=== PATIENT | male | born 1965 | race Two or more races ===

== ENCOUNTER 2025-06-13 14:13 | Inpatient (IN) | payer OTHER ==
[~2025-06-13] VITALS: Ht 218.4 cm; Wt 174.0 kg
[2025-06-13 15:05] VITALS: PULSE 104; RESP 20; O2SAT 96
[2025-06-13] MEDS: VANCOMYCIN 1GM/250ML KIT 250 ML IV ONE ×2 (15:25→21:22)
[2025-06-13] MEDS: FUROSEMIDE 100 MG/10ML VIAL IV ONE (15:25)
[2025-06-13] MEDS: HYDROcodone-ACET 10/325MG TAB PO ONE (15:28)
--- NOTE | 2025-06-13 15:28 | ECG ---
[facility] Test Date: 2025-06-13 Test Time: 14:21:50 Pat Name: GENESIS THOMAS Department: Room: 0286T Gender: M Excel Expert: JT : 1965 Requested By: EMERGENCY EMERGENCY Order Number: [id number] Reading MD: Brain Sol Measurements Intervals [place] Rate: 109 P: 60 CO: 192 QRS: 234 QRSD: 105 T: 60 QT: 345 QTc: 465 Interpretive Statements Sinus tachycardia Multiform ventricular premature complexes Left atrial enlargement Probable RVH w/ secondary repol abnormality Inferior infarct, old Lateral leads are also involved Electronically Signed On 06-20-2025 20:13:31 PDT by Brain Sol Please click the below link to view image of tracing.
[2025-06-13] MEDS: PIPERACILLIN-TAZOB 3.375GM 100 ML IV ONE (15:30)
[2025-06-13 15:52] LABS: Hematocrit 42.7 % (41.0-53.0); Hemoglobin 14.3 g/dL (13.5-17.5); Mean Corpuscular Hemoglobin 30.5 pg (28.0-32.0); Mean Corpuscular Volume 91.2 fL (80.0-100.0); Nucleated Red Blood Cells % 0.0 %
--- NOTE | 2025-06-13 15:54 | DVH ---
CHEST RADIOGRAPH Indication: sob Technique: Single frontal view of the chest was obtained Comparison: None FINDINGS: Lines and Tubes: None Lungs: No focal consolidation. Pleura: No effusion. No pneumothorax. Cardiomediastinal contours: Unremarkable Bones: No acute osseous abnormality. IMPRESSION: 1. No acute cardiopulmonary disease. 2. No pulmonary airspace disease 3. No pneumothorax
[2025-06-13 16:06] LABS: Alanine Aminotransferase 22 U/L (7-40); Albumin 3.4 g/dL (3.2-4.8); Alkaline Phosphatase 105 U/L (46-116); Anion Gap 8 (5-15); BUN/Creatinine Ratio 13.6 (10.0-20.0); Blood Urea Nitrogen 15 mg/dL (9-23); Calcium 9.8 mg/dL (8.7-10.4); Carbon Dioxide 26 mmol/L (20-31); Chloride 102 mmol/L (98-107); Potassium 4.1 mmol/L (3.5-5.1); Sodium 136 mmol/L (136-145); Total Protein 6.1 g/dL (5.7-8.2)
--- NOTE | 2025-06-13 16:06 | DVH ---
Left lower extremity venous duplex Clinical History: pain swelling Comparison: None Technique: Duplex Doppler evaluation of the deep venous system of the left lower extremity from the common femor al vein to the popliteal vein including color Doppler and spectral/pulsed waveform analysis was perfo rmed. Findings: The common femoral vein demonstrates appropriate compressibility and waveform variability. There is compressibility/patency of the great saphenous vein at the proximal thigh. The femoral vein demonstrates appropriate compressibility and waveform variability. The deep femoral vein demonstrates appropriate compressibility and waveform variability. The popliteal vein demonstrates appropriate compressibility and waveform variability. There is normal compressibility at the tibioperoneal trunk. Prominent left inguinal lymph node is seen measuring up to 2.5 cm Impression: 1. No left femoropopliteal venous thrombosis. 2. Prominent left inguinal lymph node measuring up to 2.5 cm.
[2025-06-13 16:10] LABS: Bilirubin, Total 1.7 mg/dL (0.2-1.0); Glucose 127 mg/dL (74-106)
--- NOTE | 2025-06-13 16:18 | ED.PDOC ---
SOB-HPI HPI Comments Mr. Longo, Jose You, is a 60-year-old male with past medical history of CHF, DM2, HTN, hyperlipidemia, poly-substance abuse, umbilical hernia, inguinal hernia, venous stasis, and lymphedema, The patient came to the ED via EMS due to 1 week of shortness of breath at rest, and while walking, associated with productive cough, yellowish sputum. On further questioning, the patient reports chronic limphedema with beto stasis and multiples skin ulcers in bilateral legs, he is been having wound care at home. The patient reports 1 week of worsen of left leg swelling, up to the knee and lower part of the left tight, that is tender to touch, 9/10, with erythema, warmth and ulcer in the lateral part of the leg that discharge yellowish fluid. Today, the patient reports worsened of shortness of breath, this prompted his visit to the ED. The patient denies fever, chills, nausea, vomit, diarrhea, chest pain, abdominal pain. On the ED BP: 143/81mmHg, HR: 109bpm, O2Sat 96% with oxygen by NC. The patient will be admitted for further assessment and management. Attestation note: Dr. Morton: I was the supervising attending for this ED encounter. Please see the resident's notes. I was available for questions and consultations. Differential diagnosis: Leg swelling Ddx include but not limited to DVT, ischemic limb, pitting edema, volume overload, CHF, cellulitis, hematoma, compartment syndrome, dependent edema, venous stasis. As far as the dyspnea, DDx include ACS, unstable angina, anxiety, PE, pneumothroax, neoplasm, cardiac ischemia, COPD, asthma, CHF, pleural effusion, tobacco abuse, pneumonia, hypoxia, hypercapnia, anemia., infection/sepsis., pulmonary edema. Asthma, Cardiac tamponade, infection. MDM: MDM: patient presented with the above HPI.-leg swelling and pain and dyspnea----workup was initiated. patient was found with the above mentioned diagnosis. the following medications were ordered: please refer to order lists of meds and tests obtained by myself Dr. Morton. Patient ED course and VS have been stabilized. Patient has been reassessed in the ED and remained in a stable condition. Pertinent incidental findings were discussed with the patient and/or family. Patient/family voices understanding and is agreeable with plan. Patient has been observed in the ED adequate length of time to insure improvement/stability. Escalation of care considered: Consideration of escalation to observation or admission Sepsis protocol was initiated. Antibiotics given. DVT workup was performed. CT with contrast of the affected extremity was performed to rule out any deep tissue infection. Given the patient's edematous extremity then history of CHF and shortness of breath, Lasix was ordered. Patient was ADMITTED to the medicine team for further evaluation and treatment of their presentation. All the reports of any imaging studies that were ordered by myself were reviewed by myself. Chief Complaint: Shortness of Breath Time Seen by MD: 14:46 Reviewed notes: Nurses Notes, Medications, Allergies Information Source: Patient Mode of Arrival: EMS Severity: Moderate Timing: Weeks Duration: Since onset Context: At Rest, With Light Exertion History of: CHF Modifying Factors: Exertion, Laying flat Associated Signs and Symptoms: Cough Past Medical History PAST MEDICAL HISTORY: CHF, DM, High Lipids, HTN, Thyroid Past Medical History (Other): Venous stasis Lymphadema. Thyroid tumor (does not know type) Surgical History (Other): left Hernia repair Family History Family History: Reviewed,noncontributory to illness Social History Smoker: Greater Than 1 Pack/Day Alcohol: Occasionally Drugs: Methamphetamine Lives In: Home Constitutional: denies: chills, diaphoresis, fatigue, fever, malaise, sweats, weakness, others EENTM: denies: blurred vision, double vision, ear bleeding, ear discharge, ear drainage, ear pain, ear ringing, eye pain, eye redness, hearing loss, mouth pain, mouth swelling, nasal discharge, nose bleeding, nose congestion, nose pain, photophobia, tearing, throat pain, throat swelling, voice changes, others Respiratory: reports: cough, SOB at rest, shortness of breath, SOB with excertion; denies: hemoptysis, orthopnea, stridor, wheezing, others Cardiovascular: denies: chest pain, dizzy spells, diaphoresis, Dyspnea on exertion, edema, irregular heart beat, left arm pain, lightheadedness, palpitations, PND, syncope, others Gastrointestinal: denies: abdomen distended, abdominal pain, blood streaked bowels, constipated, diarrhea, dysphagia, difficulty swallowing, hematemesis, melena, nausea, poor appetite, poor fluid intake, rectal bleeding, rectal pain, vomiting, others Genitourinary: denies: burning, dysuria, flank pain, frequency, hematuria, incontinence, penile discharge, penile sore, pain, testicle pain, testicle swelling, urgency, others Neurological: denies: dizziness, fainting, headache, left sided numbness, left sided weakness, numbness, paresthesia, pre-existing deficit, right sided numbness, right sided weakness, seizure, speech problems, tingling, tremors, weakness, others Musculoskeletal: reports: others (Left leg pain, lymphedema, multiples ulcers on left leg, wamth and erythematous. ) Integumetry: reports: change in color (in bilateral legs due to lymphedema. ); denies: change in hair/nails, dryness, laceration, lesions, lumps, rash, wounds, others Allergic/Immunocompromised: denies: Difficulty Healing, Frequent Infections, Hives, Itching, others Hematologic/Lymphatic: denies: anemia, blood clots, easy bleeding, easy bruising, swollen glands, others Endocrine: denies: excessive hunger, excessive sweating, excessive thirst, excessive urination, flushing, intolerance to cold, intolerance to heat, unexplained weight gain, unexplained weight loss, others Psychiatric: denies: anxiety, bipolar disorder, depression, hopeless, panic disorder, schizophrenia, sleepless, suicidal, others Physical Exam Exam Comments O2 by nasal canula. General Appearance: Moderate Distress HEENT: Normal ENT Inspection, Pharynx Normal, TMs Normal Neck: Full Range of Motion, Non-Tender, Normal, Normal Inspection Respiratory: Other Cardiovascular: No Edema, No JVD, No Murmur, No Gallop, Normal Peripheral Pulses, Regular Rate/Rhythm Breast Exam: Deferred Gastrointestinal: No Organomegaly, Non Tender, No Pulsatile Mass, Normal Bowel Sounds, Soft Genitalia: Deferred Pelvic: Deferred Rectal: Deferred Extremities: Decreased range of motion (Bilateral leg due to lymphedema,), Inflammation, Leg edema (Left leg: erythema up to lower tight, warmth, multiples ulcers with yellowish discharge, one big ulcer >5 cm on lateral leg with yellowish discharge and bad odor. Tender to light touch. Pedal and poplitial pulses hard to examinate due to edema. ) Musculoskeletal : Apperance: Normal Neurologic: Alert, fermentologist II-XII nml as Tested, No Motor Deficits, Normal Affect, Normal Mood, No Sensory Deficits Cerebellar Function: Normal Reflexes: Normal Skin: Dry, Normal Color, Warm Lymphatic: No Adenopathy EKG EKG : Pulse Rate (adult): 109 Comments Sinus tachycardia Multiform ventricular premature complexes Left atrial enlargement Probable RVH w/ secondary repol abnormality Inferior infarct, old Lateral leads are also involved Was a procedure done? Was a procedure done?: No Differential Dx Differential Diagnosis: CHF (exacerbation), COPD, Pneumonia, Pulmonary Embolism Comments #PE, #Pneumonia, #sepsis X-Ray, Labs, Meds, VS Vital Signs Date Time Temp Pulse Resp B/P (MAP) Pulse Ox O2 Delivery O2 Flow Rate FiO2 06/13/25 17:00 94 18 127/88 (101) 97 06/13/25 15:46 96 Nasal Cannula* 2 28 06/13/25 15:25 138/82 06/13/25 15:05 104 20 96 Nasal Cannula* 2 28 06/13/25 15:00 97.6 104 20 139/85 (103) 96 97.6 06/13/25 14:21 109 06/13/25 14:20 97.9 110 15 143/81 96 97.9 Lab Test 06/13/25 16:16 06/13/25 15:30 06/13/25 15:03 Range/Units Troponin I High Sensitivity 9 8 </=54 ng/L White Blood Count 18.4 H 4.4-10.8 10^3/uL Red Blood Count 4.69 4.5-5.90 10^6/uL Hemoglobin 14.3 13.5-17.5 g/dL Hematocrit 42.7 41.0-53.0 % Mean Corpuscular Volume 91.2 80.0-100.0 fL Mean Corpuscular Hemoglobin 30.5 28.0-32.0 pg Mean Corpuscular Hemoglobin Concent 33.5 32.0-36.0 g/dL Red Cell Distribution Width 15.6 H 11.8-14.3 % Platelet Count 210 140-450 10^3/uL Mean Platelet Volume 8.7 6.9-10.8 fL Neutrophils (%) (Auto) 84.2 H 37.0-80.0 % Lymphocytes (%) (Auto) 5.4 L 10.0-50.0 % Monocytes (%) (Auto) 10.0 0.0-12.0 % Eosinophils (%) (Auto) 0.1 0.0-7.0 % Basophils (%) (Auto) 0.3 0.0-2.0 % Neutrophils # (Auto) 15.5 H 1.6-8.6 10 ^3/uL Lymphocytes # (Auto) 1.0 0.4-5.4 10 ^3/uL Monocytes # (Auto) 1.8 H 0-1.3 10 ^3/uL Eosinophils # (Auto) 0 0-0.8 10 ^3/uL Basophils # (Auto) 0.1 0-0.2 10 ^3/uL Nucleated Red Blood Cells 0.0 % Erythrocyte Sedimentation Rate 58 H 0-20 mm/hr Sodium Level 136 136-145 mmol/L Potassium Level 4.1 3.5-5.1 mmol/L Chloride Level 102 98-107 mmol/L Carbon Dioxide Level 26 20-31 mmol/L Anion Gap 8 5-15 Blood Urea Nitrogen 15 9-23 mg/dL Creatinine 1.10 0.700-1.30 mg/dL Glomerular Filtration Rate Calc 77 >90 mL/min BUN/Creatinine Ratio 13.6 10.0-20.0 Serum Glucose 127 H 74-106 mg/dL Lactic Acid Level 1.6 0.4-2.0 mmol/L Calcium Level 9.8 8.7-10.4 mg/dL Total Bilirubin 1.7 H 0.2-1.0 mg/dL Aspartate Amino Transferase (AST) 26 13-40 U/L Alanine Aminotransferase (ALT) 22 7-40 U/L Alkaline Phosphatase 105 46-116 U/L C-Reactive Protein High Sensitivity > 20.00 H <1.0 mg/dL B-Type Natriuretic Peptide 46.19 0-100 pg/mL Total Protein 6.1 5.7-8.2 g/dL Albumin 3.4 3.2-4.8 g/dL Thyroid Stimulating Hormone (TSH) 0.51 L 0.55-4.78 uIU/mL Urine Color Yellow Yellow Urine Clarity Turbid H Clear Urine pH 7.0 5.0-9.0 Urine Specific [place] 1.014 1.001-1.035 Urine Protein 1+ H Negative Urine Ketones Negative Negative Urine Blood 2+ H Negative /uL Urine Nitrite 2+ H Negative Urine Bilirubin Negative Negative Urine Urobilinogen Normal Negative mg/dL Urine Leukocyte Esterase 1+ Negative /uL Urine RBC 5 0 - 3 /hpf Urine Microscopic WBC 12 H 0-3 /HPF Urine Squamous Epithelial Cells Few <5 /hpf Urine Bacteria Few H None Seen /hpf Urine Mucus Few None Seen Urine Glucose Trace Normal mg/dL Current Medications Medications (Trade) Dose Ordered Sig/Teresa Route Start Time Stop Time Status Last Admin Furosemide (Lasix Injection) 60 mg ONCE ONCE IV 06/13/25 15:15 06/13/25 15:16 DC 06/13/25 15:25 Vancomycin HCl 250 ml @ 250 mls/hr ONCE ONCE IV 06/13/25 15:15 06/13/25 16:14 DC 06/13/25 15:25 Piperacillin Sod/ Tazobactam Sod 100 ml @ 100 mls/hr ONCE ONCE IV 06/13/25 15:30 06/13/25 16:29 DC 06/13/25 15:30 Acetaminophen/ Hydrocodone Bitart ([place] 10/325MG Tab) 1 tab ONCE ONCE PO 06/13/25 15:30 06/13/25 15:31 DC 06/13/25 15:28 Diagnostic Test (Pha) (Accu-Chek Comfort Curve T) 1 strip ACHS 06/13/25 17:00 06/13/25 17:00 Ondansetron HCl (Zofran) 4 mg Q4HP PRN IV 06/13/25 16:30 06/13/25 18:08 Morphine Sulfate 4 mg ONCE ONCE IV 06/13/25 17:30 06/13/25 17:31 DC 06/13/25 17:46 X-Ray, Labs, Meds, VS Comment 15:45 The patient has been re-assessed. CBC: 18.4x10e3/uL Neutrophils 15.5 CMP: Lactic acid 1.6 UA: Positive 16:15 US doppler of lower extremities: 1. No left femoropopliteal venous thrombosis. 2. Prominent left inguinal lymph node measuring up to 2.5 cm. The patient will be admitted for further management and assessment. Time of 1ST Reevaluation: 15:45 Reevaluation 1ST: Unchanged Time of 2ND Reevaluation: 16:15 Reevaluation 2ND: Unchanged Patient Education/Counseling: Diagnosis, Treatment, Prognosis, Need For Follow Up Family Education/Counseling: No Family Present SEPSIS Sepsis Screen Date sepsis recognized/suspect: Jun 13, 2025 Time Sepsis recognized/suspect: 1504 Recent Procedure: No On Antibiotic Therapy: No Respiratory Rate >20: No Heart Rate >90: Yes Temp<36 C (96.8 F) or >38.3 C: No SBP <90 or MAP <65 mmHG: No New Acute Mental Status Change: No Is the patient on CPAP, BIPAP,: No Physician Orders Recording Studio Intern (06/13/25 ) Chest Portable (06/13/25 15:11) Blood Culture (06/13/25 15:11) Lt Lower Dvt (06/13/25 15:11) Piperacillin-Tazob 3.375gm (Zosyn 3.375g (06/13/25 22:00) Furosemide Injection (Lasix Injection) (06/14/25 10:00) Atorvastatin (Lipitor) (06/13/25 22:00) Aspirin Tablet (06/14/25 10:00) Clonidine Hcl Tablet (Catapres Tablet) (06/13/25 16:30) Carvedilol Tablet (Coreg Tablet) (06/13/25 22:00) Consistent Carb(Ccho)Diabetes (06/13/25 Dinner) Glucose Blood (Accu-Chek Comfort Curve T (06/13/25 17:00) Insulin R (Human) (Insulin R) (06/13/25 22:00) Insulin R (Human) (Insulin R) (06/13/25 17:00) Dextrose 50% Syringe (06/13/25 16:30) Allergies (06/13/25 16:28) Code Status (06/13/25 16:28) Sodium Chloride Lock (Saline Lock Ns) (06/13/25 22:00) Oxygen Per Hour (06/13/25 16:28) Hydrocodone-Acet 5/325mg Tab ([place] 5/32 (06/13/25 16:30) Ondansetron Hcl (Zofran) (06/13/25 16:30) Docusate Sodium Capsule (Colace Capsule) (06/13/25 16:30) Complete Blood Count (06/14/25 04:00) Comprehensive Metabolic Panel (06/14/25 04:00) Echo 2d Mode Cardiac Dop (06/13/25 16:28) Condition: Serious (06/13/25 16:28) Acetaminophen Tablet (Tylenol Tablet) (06/13/25 16:30) Bedrest With Bathroom Privileg (06/13/25 16:28) Sequential Compression Device (06/13/25 ) * Cardiology Consult (06/13/25 16:36) Lt Lower Extremity W Contras (06/13/25 16:52) Morphine Sulfate Injection (06/13/25 17:30) * Wound Consult (06/13/25 ) Vital Signs Date Time Temp Pulse Resp B/P (MAP) Pulse Ox O2 Delivery O2 Flow Rate FiO2 06/13/25 17:00 94 18 127/88 (101) 97 06/13/25 15:46 96 Nasal Cannula* 2 06/13/25 15:25 138/82 06/13/25 15:05 104 20 96 Nasal Cannula* 2 06/13/25 15:00 97.6 104 20 139/85 (103) 96 97.6 06/13/25 14:21 109 06/13/25 14:20 97.9 110 15 143/81 96 97.9 Laboratory Tests Test 06/13/25 15:30 Lactic Acid Level 1.6 mmol/L (0.4-2.0) White Blood Count 18.4 10^3/uL (4.4-10.8) H Medications Medications Dose Ordered Sig/Teresa Route Start Time Stop Time Status Last Admin Dose Admin Acetaminophen/ Hydrocodone Bitart 1 tab ONCE ONCE PO 06/13/25 15:30 06/13/25 15:31 DC 06/13/25 15:28 Diagnostic Test (Pha) 1 strip ACHS 06/13/25 17:00 06/13/25 17:00 Furosemide 60 mg ONCE ONCE IV 06/13/25 15:15 06/13/25 15:16 DC 06/13/25 15:25 Morphine Sulfate 4 mg ONCE ONCE IV 06/13/25 17:30 06/13/25 17:31 DC 06/13/25 17:46 Ondansetron HCl 4 mg Q4HP PRN IV 06/13/25 16:30 06/13/25 18:08 Piperacillin Sod/ Tazobactam Sod 100 ml @ 100 mls/hr ONCE ONCE IV 06/13/25 15:30 06/13/25 16:29 DC 06/13/25 15:30 Vancomycin HCl 250 ml @ 250 mls/hr ONCE ONCE IV 06/13/25 15:15 06/13/25 16:14 DC 06/13/25 15:25 Departure 1 Departure Time of Disposition: 16:17 Impression: Primary Impression: Acute exacerbation of CHF (congestive heart failure) Additional Impressions: Cellulitis Sepsis UTI (urinary tract infection) Disposition: ADMITTED INPATIENT Admit to: Tele Condition: Guarded Discharged With: Self Comments Goals of care discussed with the patient > 35 min. Discussed plan of care with Dr. Morton Code status: Full code PCP: Imelda Bray Plan discussed with: Patient, the patient agrees with the admission plan. Critical Care Note Critical Care Time?: Yes (1 hr-critical care time only) Stability Stability form required: No Heart Score Heart Score: Heart Score Response (Comments) Value History N/A 0 EKG N/A 0 Age N/A 0 Risk Factors N/A 0 Troponin N/A 0 Total 0 ANDIE HOFFMAN RESIDENT Jun 13, 2025 16:17 DAMARIS MORTON DO Jun 13, 2025 19:04
[2025-06-13 16:26] LABS: Urine Protein, UAD 1+ (Negative)
[2025-06-13] MEDS ORDERED: DEXTROSE (50%) 50ML SYRG IV PRN (16:30)
[2025-06-13] MEDS ORDERED: ACETAMINOPHEN 325 MG TAB PO PRN (16:30)
[2025-06-13] MEDS ORDERED: DOCUSATE SOD 100 MG CAP PO PRN (16:30)
[2025-06-13] MEDS: ACCU-CHEK COMFORT CURVE STRIP VI SCH (17:00)
[2025-06-13] MEDS: InsuLIN REG 1unit/0.01ml Soln (100units/ml) SC SCH ×2 (17:00→21:31)
[2025-06-13] MEDS: IOHEXOL 300 MG/ML 100ML BOTTLE IJ ONE (17:02)
[2025-06-13] MEDS ORDERED: MORPHINE SULFATE INJ 2 MG/ml SYRG IV PRN ×2 (17:30→17:45)
[2025-06-13] MEDS: SODIUM CHLOR 0.9% PF (SALINE LOCK) 10ML VIAL/SYR IV SCH (17:34)
[2025-06-13] MEDS ORDERED: NITROGLYCERIN 0.4 MG SL TAB SL PRN (17:45)
[2025-06-13] MEDS ORDERED: VANCOMYCIN PER PHARMACY 0 MG IV SCH (17:45)
--- NOTE | 2025-06-13 17:45 | DVHHP2 ---
History of Present Illness Reason for Visit: Acute respiratory distress History of Present Illness The patient is a 60-year-old male with multiple past medical history including CHF, DM, hyperlipidemia, thyroid disease, and hypertension who presented to [facility] ED with complaint of shortness of breaths for the past 1 week. Patient reports he has been experiencing shortness of breaths associated with productive cough with yellowish sputum, chronic lymphedema with venous stasis, and multiple skin ulcer.The patient reports 1 week of worsen of left leg swelling, up to the knee and lower part of the left tight, that is tender to touch, rating 9/10 with erythema, warmth and ulcer in the lateral part of the bilateral leg that discharge yellowish fluid, getting worse today that prompted this visit. Patient was seen and evaluated in the ED, laboratory data shows WBC 18.4, platelets 210, sodium 136, potassium 4.1, BUN 15, creatinine 1.10, GFR 77, glucose 127, calcium 9.8, total bilirubin 1.7, BNP 46.19, CRP 20.00, troponin 8, TSH 0.51, blood pressure 138/82, heart rate 104, temperature 97.6 F, O2 saturation 96% on oxygen. Urinalysis positive for urinary tract infection. Left lower extremity CT revealing extensive cellulitis throughout the left lower extremity. Patient was started on IV antibiotic regimen vancomycin, please see medication orders section in the computer. On my assessment, patient denied chest pain, no headache, no dizziness, currently on oxygen, no abdominal pain, no diarrhea, nausea or vomiting, no fever, no chills. Patient was admitted for further evaluation and medical management. Past Medical History CHF, DM, High Lipids, HTN, Thyroid, Venous stasis, Lymphedema, Thyroid tumor Past Surgical History Left Hernia repair Family History Reviewed, noncontributory to the management of this case. Past Social History The patient lives at home, smokes cigarettes greater than 1 pack per day, drinks alcohol occasionally, uses methamphetamine. Review of Systems Constitutional: Yes: Weakness; No: Fever, Chills, Sweats, Malaise, Other Eyes: No: Pain, Vision change, Conjunctivae inflammation, Eyelid inflammation, Other, Redness ENT: No: Ear pain, Ear discharge, Nose pain, Nose discharge, Nose congestion, Mouth pain, Mouth swelling, Throat pain, Throat swelling, Other Respiratory: Cough, Shortness of breath, Other (SOB at rest); No: Dry, SOB with excertion, Wheezing, Hemoptysis, Pleuritic Pain, Sputum, Wheezing Cardiovascular: No: Chest Pain, Palpitations, Orthopnea, Paroxysmal Noc. Dyspnea, Edema, Lt Headedness, Other Gastrointestinal: No: Nausea, Vomiting, Abdominal Pain, Diarrhea, Constipation, Melena, Hematochezia, Other Genitourinary: No Dysuria, No Frequency, No Incontinence, No Hematuria, No Retention, No Other Musculoskeletal: other (Bilateral lower extremity swelling); No: neck pain, shoulder pain, arm pain, back pain, hand pain, leg pain, foot pain Skin: No: Rash, Lesions, Jaundice, Bruising, Other Neurological: No: Weakness, Numbness, Incoordination, Change in speech, Confusion, Seizures, Other Allergies: Coded Allergies: NO KNOWN ALLERGIES (Unverified , 06/13/25) Medications Current Medications Medications Dose Ordered Sig/Teresa Route Start Time Stop Time Status Last Admin Dose Admin Piperacillin Sod/ Tazobactam Sod 100 ml @ 25 mls/hr Q8HR IV 06/13/25 22:00 Furosemide 40 mg DAILY IV 06/14/25 10:00 Atorvastatin Calcium 20 mg HS PO 06/13/25 22:00 Aspirin 81 mg DAILY PO 06/14/25 10:00 Clonidine HCl 0.1 mg Q4HP PRN PO 06/13/25 16:30 Carvedilol 12.5 mg Q12HR PO 06/13/25 22:00 Diagnostic Test (Pha) 1 strip ACHS 06/13/25 17:00 06/13/25 17:00 1 STRIP Insulin Human Regular HS SC 06/13/25 22:00 Insulin Human Regular AC SC 06/13/25 17:00 Dextrose 50 ml UD PRN IV 06/13/25 16:30 Sodium Chloride 10 ml Q8HR IV 06/13/25 22:00 06/13/25 17:34 10 ML Acetaminophen/ Hydrocodone Bitart 1 tab Q4HP PRN PO 06/13/25 16:30 Ondansetron HCl 4 mg Q4HP PRN IV 06/13/25 16:30 Docusate Sodium 100 mg BIDPRN PRN PO 06/13/25 16:30 Acetaminophen 650 mg Q6HP PRN PO 06/13/25 16:30 Morphine Sulfate 2 mg Q4HPRN PRN IV 06/13/25 17:30 Exam Vital Signs Vital Signs Date Time Temp Pulse Resp B/P (MAP) Pulse Ox O2 Delivery O2 Flow Rate FiO2 06/13/25 15:46 96 Nasal Cannula* 2 28 06/13/25 15:25 138/82 06/13/25 15:05 104 20 06/13/25 15:00 97.6 97.6 General Appearance: Alert, Oriented X3, Cooperative, No acute distress HEENT: Atraumatic, PERRLA, EOMI, Mucous membr. moist/pink Respiratory: Normal air movement, Other (Diminished breath sounds) Cardiovascular: Regular rate, Normal S1, Normal S2, No murmurs Abdominal: Normal bowel sounds, Soft, No tenderness, No hepatospenomegaly, No masses Extremities: No clubbing, No cyanosis, Normal pulses, Other (Lower extremity edema, tenderness/swelling.) Neuro: Normal speech, Normal tone, Sensation intact, Cranial nerves 3-12 NL, Reflexes 2+, Other (Generalized weakness) Psych/Mental Status: Mental status NL, Mood NL Labs/Xrays Labs Test 06/13/25 16:16 06/13/25 15:30 06/13/25 15:03 Range/Units Troponin I High Sensitivity 9 </=54 ng/L White Blood Count 18.4 H 4.4-10.8 10^3/uL Red Blood Count 4.69 4.5-5.90 10^6/uL Hemoglobin 14.3 13.5-17.5 g/dL Hematocrit 42.7 41.0-53.0 % Mean Corpuscular Volume 91.2 80.0-100.0 fL Mean Corpuscular Hemoglobin 30.5 28.0-32.0 pg Mean Corpuscular Hemoglobin Concent 33.5 32.0-36.0 g/dL Red Cell Distribution Width 15.6 H 11.8-14.3 % Platelet Count 210 140-450 10^3/uL Mean Platelet Volume 8.7 6.9-10.8 fL Neutrophils (%) (Auto) 84.2 H 37.0-80.0 % Lymphocytes (%) (Auto) 5.4 L 10.0-50.0 % Monocytes (%) (Auto) 10.0 0.0-12.0 % Eosinophils (%) (Auto) 0.1 0.0-7.0 % Basophils (%) (Auto) 0.3 0.0-2.0 % Neutrophils # (Auto) 15.5 H 1.6-8.6 10 ^3/uL Lymphocytes # (Auto) 1.0 0.4-5.4 10 ^3/uL Monocytes # (Auto) 1.8 H 0-1.3 10 ^3/uL Eosinophils # (Auto) 0 0-0.8 10 ^3/uL Basophils # (Auto) 0.1 0-0.2 10 ^3/uL Nucleated Red Blood Cells 0.0 % Erythrocyte Sedimentation Rate 58 H 0-20 mm/hr Sodium Level 136 136-145 mmol/L Potassium Level 4.1 3.5-5.1 mmol/L Chloride Level 102 98-107 mmol/L Carbon Dioxide Level 26 20-31 mmol/L Anion Gap 8 5-15 Blood Urea Nitrogen 15 9-23 mg/dL Creatinine 1.10 0.700-1.30 mg/dL Glomerular Filtration Rate Calc 77 >90 mL/min BUN/Creatinine Ratio 13.6 10.0-20.0 Serum Glucose 127 H 74-106 mg/dL Lactic Acid Level 1.6 0.4-2.0 mmol/L Calcium Level 9.8 8.7-10.4 mg/dL Total Bilirubin 1.7 H 0.2-1.0 mg/dL Aspartate Amino Transferase (AST) 26 13-40 U/L Alanine Aminotransferase (ALT) 22 7-40 U/L Alkaline Phosphatase 105 46-116 U/L C-Reactive Protein High Sensitivity > 20.00 H <1.0 mg/dL B-Type Natriuretic Peptide 46.19 0-100 pg/mL Total Protein 6.1 5.7-8.2 g/dL Albumin 3.4 3.2-4.8 g/dL Thyroid Stimulating Hormone (TSH) 0.51 L 0.55-4.78 uIU/mL Urine Color Yellow Yellow Urine Clarity Turbid H Clear Urine pH 7.0 5.0-9.0 Urine Specific [place] 1.014 1.001-1.035 Urine Protein 1+ H Negative Urine Ketones Negative Negative Urine Blood 2+ H Negative /uL Urine Nitrite 2+ H Negative Urine Bilirubin Negative Negative Urine Urobilinogen Normal Negative mg/dL Urine Leukocyte Esterase 1+ Negative /uL Urine RBC 5 0 - 3 /hpf Urine Microscopic WBC 12 H 0-3 /HPF Urine Squamous Epithelial Cells Few <5 /hpf Urine Bacteria Few H None Seen /hpf Urine Mucus Few None Seen Urine Glucose Trace Normal mg/dL PATIENT: GENESIS THOMAS WILEYACCT: [id number] UNIT: [id number] : 1965 LOC: ER ROOM / BED: / AGE / SEX: 60 / M ADM STATUS: REG ER SERVICE 1511 ORDERING PHYSICIAN: DAMARIS MORTON DO PROCEDURE(s): LLDVT - LT Lower DVT REASON: pain swelling ORDER NUMBER(s): [id number], ACCESSION NUMBER(s): [id number] Left lower extremity venous duplex Clinical History: pain swelling Comparison: None Technique: Duplex Doppler evaluation of the deep venous system of the left lower extremity from the common femoral vein to the popliteal vein including color Doppler and spectral/pulsed waveform analysis was performed. Findings: The common femoral vein demonstrates appropriate compressibility and waveform variability. There is compressibility/patency of the great saphenous vein at the proximal thigh. The femoral vein demonstrates appropriate compressibility and waveform variability. The deep femoral vein demonstrates appropriate compressibility and waveform variability. The popliteal vein demonstrates appropriate compressibility and waveform variability. There is normal compressibility at the tibioperoneal trunk. Prominent left inguinal lymph node is seen measuring up to 2.5 cm Impression: 1. No left femoropopliteal venous thrombosis. 2. Prominent left inguinal lymph node measuring up to 2.5 cm. ORDERING PHYSICIAN: DAMARIS MORTON DO PROCEDURE(s): LE1CR - LT LOWER EXTREMITY W CONTRAS REASON: Pain swelling infection ORDER NUMBER(s): [id number], ACCESSION NUMBER(s): [id number] INDICATION: Pain swelling infection COMPARISON: None TECHNIQUE: CT of the left lower extremity was performed with contrast. Volume transverse images were obtained and reconstructed in multiple planes using bone and soft tissue algorithms. Radiation Dose Information: CT Dose: CTDI volume is 11.02 mGy. Dose-length product is 6.96 mGy*cm Contrast: 100 mL of Omnipaque 300 was injected. FINDINGS: There is no fracture, dislocation or aggressive osseous lesion. There is no joint effusion. Extensive edema, fat stranding, and skin thickening is seen throughout the left lower extremity suggestive of cellulitis. No discernible abscess identified. IMPRESSION: 1. Extensive cellulitis throughout the left lower extremity. 2. No discernible abscess. ORDERING PHYSICIAN: DAMARIS MORTON DO PROCEDURE(s): CXRP - CHEST PORTABLE REASON: sob ORDER NUMBER(s): [id number], ACCESSION NUMBER(s): [id number] CHEST RADIOGRAPH Indication: sob Technique: Single frontal view of the chest was obtained Comparison: None FINDINGS: Lines and Tubes: None Lungs: No focal consolidation. Pleura: No effusion. No pneumothorax. Cardiomediastinal contours: Unremarkable Bones: No acute osseous abnormality. IMPRESSION: 1. No acute cardiopulmonary disease. 2. No pulmonary airspace disease 3. No pneumothorax SEPSIS Sepsis Screen Date sepsis recognized/suspect: Jun 13, 2025 Time Sepsis recognized/suspect: 150 Recent Procedure: No On Antibiotic Therapy: No Respiratory Rate >20: No Heart Rate >90: Yes Temp<36 C (96.8 F) or >38.3 C: No SBP <90 or MAP <65 mmHG: No New Acute Mental Status Change: No Is the patient on CPAP, BIPAP,: No Physician Orders Extrusion Process Operator (06/13/25 ) Chest Portable (06/13/25 15:11) Blood Culture (06/13/25 15:11) Troponin-I Hs (06/13/25 18:11) Lt Lower Dvt (06/13/25 15:11) Piperacillin-Tazob 3.375gm (Zosyn 3.375g (06/13/25 22:00) Furosemide Injection (Lasix Injection) (06/14/25 10:00) Atorvastatin (Lipitor) (06/13/25 22:00) Aspirin Tablet (06/14/25 10:00) Clonidine Hcl Tablet (Catapres Tablet) (06/13/25 16:30) Carvedilol Tablet (Coreg Tablet) (06/13/25 22:00) Consistent Carb(Ccho)Diabetes (06/13/25 Dinner) Glucose Blood (Accu-Chek Comfort Curve T (06/13/25 17:00) Insulin R (Human) (Insulin R) (06/13/25 22:00) Insulin R (Human) (Insulin R) (06/13/25 17:00) Dextrose 50% Syringe (06/13/25 16:30) Allergies (06/13/25 16:28) Code Status (06/13/25 16:28) Sodium Chloride Lock (Saline Lock Ns) (06/13/25 22:00) Oxygen Per Hour (06/13/25 16:28) Hydrocodone-Acet 5/325mg Tab ([place] (06/13/25 16:30) Ondansetron Hcl (Zofran) (06/13/25 16:30) Docusate Sodium Capsule (Colace Capsule) (06/13/25 16:30) Complete Blood Count (06/14/25 04:00) Comprehensive Metabolic Panel (06/14/25 04:00) Echo 2d Mode Cardiac Dop (06/13/25 16:28) Condition: Serious (06/13/25 16:28) Acetaminophen Tablet (Tylenol Tablet) (06/13/25 16:30) Bedrest With Bathroom Privileg (06/13/25 16:28) Sequential Compression Device (06/13/25 ) * Cardiology Consult (06/13/25 16:36) Lt Lower Extremity W Contras (06/13/25 16:52) Morphine Sulfate Injection (06/13/25 17:30) * Wound Consult (06/13/25 ) Vital Signs Date Time Temp Pulse Resp B/P (MAP) Pulse Ox O2 Delivery O2 Flow Rate FiO2 06/13/25 15:46 96 Nasal Cannula* 2 28 06/13/25 15:25 138/82 06/13/25 15:05 104 20 96 Nasal Cannula* 2 28 06/13/25 15:00 97.6 104 20 139/85 (103) 96 97.6 06/13/25 14:21 109 06/13/25 14:20 97.9 110 15 143/81 96 97.9 Laboratory Tests Test 06/13/25 15:30 Lactic Acid Level 1.6 mmol/L (0.4-2.0) White Blood Count 18.4 10^3/uL (4.4-10.8) H Medications Medications Dose Ordered Sig/Teresa Route Start Time Stop Time Status Last Admin Dose Admin Acetaminophen/ Hydrocodone Bitart 1 tab ONCE ONCE PO 06/13/25 15:30 06/13/25 15:31 DC 06/13/25 15:28 1 TAB Diagnostic Test (Pha) 1 strip ACHS 06/13/25 17:00 06/13/25 17:00 1 STRIP Furosemide 60 mg ONCE ONCE IV 06/13/25 15:15 06/13/25 15:16 DC 06/13/25 15:25 60 MG Piperacillin Sod/ Tazobactam Sod 100 ml @ 100 mls/hr ONCE ONCE IV 06/13/25 15:30 06/13/25 16:29 DC 06/13/25 15:30 100 MLS/HR Sodium Chloride 10 ml Q8HR IV 06/13/25 22:00 06/13/25 17:34 10 ML Vancomycin HCl 250 ml @ 250 mls/hr ONCE ONCE IV 06/13/25 15:15 06/13/25 16:14 DC 06/13/25 15:25 250 MLS/HR Assessment/Plan Assessment/Plan Acute respiratory distress Morbid obesity Cellulitis of lower extremity Sepsis, unspecified organisms Generalized weakness UTI (urinary tract infection) Plan 1. Admit to telemetry unit 2. Breathing treatment 3. Pain control management 4. IV antibiotic management 5. Management of fluids and electrolytes 6. Consultation for pulmonology 7. Diagnostic test lower extremity CT 8. DVT prophylaxis-on Lovenox 9. Repeat labs CBC, CMP in a.m. 10.Home medication reviewed and reconciled 11. Continue with current medical management 12. Treatment plan discussed with patient and RN. Patient verbalized mary day. Plan discussed with: Patient, Other (RN) My Orders Orders - BIBIANA THOMAS DNP Procedure Category Date Status Time Piperacillin-Tazob PHA 06/13/25 In Process 3.375gm (Zosyn 3.375g 22:00 Furosemide Injection PHA 06/14/25 In Process (Lasix Injection) 10:00 Atorvastatin (Lipitor) PHA 06/13/25 In Process 22:00 Aspirin Tablet PHA 06/14/25 In Process 10:00 Clonidine Hcl Tablet PHA 06/13/25 In Process (Catapres Tablet) 16:30 Carvedilol Tablet PHA 06/13/25 In Process (Coreg Tablet) 22:00 Consistent DIET 06/13/25 Transmitted Carb(Ccho)Diabetes Dinner Glucose Blood PHA 06/13/25 In Process (Accu-Chek Comfort 17:00 Insulin R (Human) PHA 06/13/25 In Process (Insulin R) 22:00 Insulin R (Human) PHA 06/13/25 In Process (Insulin R) 17:00 Dextrose 50% Syringe PHA 06/13/25 In Process 16:30 Allergies MILO 06/13/25 In Process 16:28 Code Status CODE 06/13/25 Transmitted 16:28 Sodium Chloride Lock PHA 06/13/25 In Process (Saline Lock Ns) 22:00 Oxygen Per Hour RT 06/13/25 Transmitted 16:28 Hydrocodone-Acet PHA 06/13/25 In Process 5/325mg Tab ([place] 16:30 Ondansetron Hcl PHA 06/13/25 In Process (Zofran) 16:30 Docusate Sodium PHA 06/13/25 In Process Capsule (Colace 16:30 Complete Blood Count LAB 06/14/25 Verified 04:00 Comprehensive LAB 06/14/25 Verified Metabolic Panel 04:00 Echo 2d Mode Cardiac US 06/13/25 Logged DOP 16:28 Condition: Serious MILO 06/13/25 In Process 16:28 Acetaminophen Tablet PHA 06/13/25 In Process (Tylenol Tablet) 16:30 Bedrest With Bathroom MILO 06/13/25 In Process Privileg 16:28 Sequential MILO 06/13/25 In Process Compression Device * Cardiology Consult CONS 06/13/25 Transmitted 16:36 Morphine Sulfate PHA 06/13/25 In Process Injection 17:30 * Wound Consult CONS 06/13/25 Transmitted Problem List: (1) Acute respiratory distress (2) Morbid obesity (3) Cellulitis of lower extremity (4) Sepsis, unspecified organism (5) Generalized weakness (6) UTI (urinary tract infection) Date of Service: Jun 13, 2025 Billing Provider: BIBIANA THOMAS DNP Common Visit Codes: 47542-[id number] INP/OBS CARE (HIGH) BIBIANA THOMAS DNP Jun 13, 2025 17:45
[2025-06-13] MEDS: MORPHINE SULFATE 4 MG/ML SYR/VIAL IV ONE (17:46)
[2025-06-13] MEDS: ONDANSETRON HCL 4 MG/2 ML VIAL IV PRN (18:08)
--- NOTE | 2025-06-13 18:11 | DVH ---
INDICATION: Pain swelling infection COMPARISON: None TECHNIQUE: CT of the left lower extremity was performed with contrast. Volume transverse images were obtained and reconstructed in multiple planes using bone and soft tissue algorithms. Radiation Dose Information: CT Dose: CTDI volume is 11.02 mGy. Dose-length product is 6.96 mGy*cm Contrast: 100 mL of Omnipaque 300 was injected. FINDINGS: There is no fracture, dislocation or aggressive osseous lesion. There is no joint effusion. Extensive edema, fat stranding, and skin thickening is seen throughout the left lower extremity sugge stive of cellulitis. No discernible abscess identified. IMPRESSION: 1. Extensive cellulitis throughout the left lower extremity. 2. No discernible abscess.
[2025-06-13 20:25] LABS: COVID19 ANTIGEN SOFIA FIA NEGATIVE (NEGATIVE)
[2025-06-13 20:50] VITALS: BP 115/66; PULSE 96; RESP 18; TEMP 97.8; O2SAT 95
[2025-06-13 21:19] VITALS: BP 115/66; PULSE 96; RESP 18; TEMP 97.8; O2SAT 96
[2025-06-13] MEDS: CARVEDILOL 12.5 MG TAB PO SCH (21:22)
[2025-06-13] MEDS: ATORVASTATIN 20 MG TAB PO SCH (21:22)
[2025-06-13] MEDS: PIPERACILLIN-TAZOB 3.375GM 100 ML IV SCH (23:04)
[2025-06-14] VITALS (9 sets, daily range): BP systolic 101–124; BP diastolic 61–83; PULSE 58–95; RESP 17–18; TEMP 97.6–98.4; O2SAT 93–99
[2025-06-14 06:56] LABS: Hematocrit 38.4 % (41.0-53.0); Hemoglobin 12.9 g/dL (13.5-17.5); Mean Corpuscular Hemoglobin 31.0 pg (28.0-32.0); Mean Corpuscular Volume 92.0 fL (80.0-100.0); Nucleated Red Blood Cells % 0.0 %
[2025-06-14 07:07] LABS: Alanine Aminotransferase 19 U/L (7-40); Alkaline Phosphatase 95 U/L (46-116); Calcium 9.7 mg/dL (8.7-10.4); Carbon Dioxide 27 mmol/L (20-31); Chloride 102 mmol/L (98-107)
[2025-06-14 07:08] LABS: Anion Gap 8 (5-15); BUN/Creatinine Ratio 17.0 (10.0-20.0); Blood Urea Nitrogen 17 mg/dL (9-23); Potassium 4.1 mmol/L (3.5-5.1); Sodium 137 mmol/L (136-145)
[2025-06-14 07:12] LABS: Albumin 3.0 g/dL (3.2-4.8); Bilirubin, Total 1.2 mg/dL (0.2-1.0); Glucose 110 mg/dL (74-106); Total Protein 5.4 g/dL (5.7-8.2)
[2025-06-14] MEDS: FUROSEMIDE 40 MG/4 ML VIAL IV SCH ×2 (09:59→17:54)
--- NOTE | 2025-06-14 12:08 | DVHINCON2 ---
Date Seen: Jun 14, 2025 Referring Physician RANJANA Inman Reason for Consultation CHF exacerbation History of Present Illness This is a 60-year-old man who presented to the emergency room with a chief complaint of SOB for one week. The patient complains of progressive shortness of breath associated with a productive cough with yellow sputum, BEJARANO, left lower extremity erythema/swelling, pyrexia, and myalgia. Denies chest pain, palpitations, diaphoresis, dizziness, or syncopal events. He underwent a 12 lead electrocardiogram revealing a sinus rhythm with associated premature ventricular contractions and suggestive of left atrial enlargement. Serial troponin levels are negative. Denies following up with a banking paralegal in the outpatient setting. Denies undergoing any invasive cardiac workup in the past. States he recently moved to this area to be closer to his family. Significant medical history includes unspecified congestive heart failure, insulin-dependent diabetes mellitus, recurrent left lower extremity cellulitis, unspecified thyroid tumor diagnosed three years ago, obesity, and methamphetamine/nicotine dependence including 40 pack-years. Past Medical History Past medical history reviewed. No other significant than mentioned above. Past Surgical History Inguinal hernia repair Umbilical hernia repair Family History: Patient reports no known family medical history. Family History Family history reviewed. Not significant for cardiovascular disease. Social History Denies the use of alcohol. Smokes one pack of cigarettes per day with a 40 pack year history. Admits to methamphetamine use with latest intake a week ago. Allergies: Coded Allergies: NO KNOWN ALLERGIES (Unverified , 06/13/25) Home Meds Home medications reviewed. Lasix, metoprolol, metformin, ASA, Sensipar. Current Medications Current Medications Medications (Trade) Dose Ordered Sig/Teresa Route PRN Reason Start Time Stop Time Status Last Admin Piperacillin Sod/ Tazobactam Sod 100 ml @ 25 mls/hr Q8HR IV 06/13/25 22:00 06/14/25 06:11 Furosemide (Lasix Injection) 40 mg DAILY IV 06/14/25 10:00 06/14/25 09:59 Atorvastatin Calcium (Lipitor) 20 mg HS PO 06/13/25 22:00 06/13/25 21:22 Aspirin 81 mg DAILY PO 06/14/25 10:00 06/14/25 09:59 Clonidine HCl (Catapres Tablet) 0.1 mg Q4HP PRN PO SBP>150 06/13/25 16:30 Carvedilol (Coreg Tablet) 12.5 mg Q12HR PO 06/13/25 22:00 06/14/25 09:59 Diagnostic Test (Pha) (Accu-Chek Comfort Curve T) 1 strip ACHS 06/13/25 17:00 06/14/25 06:04 Insulin Human Regular (InsuLIN R) HS SC 06/13/25 22:00 Insulin Human Regular (InsuLIN R) AC SC 06/13/25 17:00 Dextrose 50 ml UD PRN IV Blood Sugar LESS THAN 60 06/13/25 16:30 Sodium Chloride (Saline Lock Ns) 10 ml Q8HR IV 06/13/25 22:00 06/14/25 06:04 Acetaminophen/ Hydrocodone Bitart ([employer] 5/325MG Tab) 1 tab Q4HP PRN PO MODERATE PAIN (4-6 PAIN SCALE) 06/13/25 16:30 Ondansetron HCl (Zofran) 4 mg Q4HP PRN IV NAUSEA / VOMITING 06/13/25 16:30 06/13/25 18:08 Docusate Sodium (Colace Capsule) 100 mg BIDPRN PRN PO FOR CONSTIPATION 06/13/25 16:30 Acetaminophen (Tylenol Tablet) 650 mg Q6HP PRN PO PAIN SCALE 1-3 OR TEMP>100.4 06/13/25 16:30 Morphine Sulfate 2 mg Q4HPRN PRN IV SEVERE PAIN (7-10 PAIN SCALE) 06/13/25 17:30 Vancomycin HCl 0 ml @ 0 mls/hr UD IV 06/13/25 17:45 Nitroglycerin (Ntrostat Sublingual) 0.4 mg Q5MINP PRN SL FOR CHEST PAIN 06/13/25 17:45 Morphine Sulfate 2 mg Q30M PRN IV FOR CHEST PAIN 06/13/25 17:45 Review of Systems Constitutional: Pyrexia, myalgia Ears, Nose, & Throat: No symptom reported Eyes: No symptom reported Neurological: No symptoms reported Pulmonary/Respiratory: SOB, productive cough Cardiovascular: No symptom reported Gastrointestinal: No symptom reported Genitourinary: No symptom reported Musculoskeletal: RLE erythema/swelling Skin: No symptom reported Psychiatric: No symptom reported Endocrine: No symptom reported Hemotologic/Lymphatic: No symptom reported Vital Signs Vital Signs Date Time Temp Pulse Resp B/P (MAP) Pulse Ox O2 Delivery O2 Flow Rate FiO2 10/5/25 09:59 90 112/73 06/14/25 08:39 98.0 18 95 98.0 06/14/25 08:10 Nasal Cannula* 3 32 Physical Exam General Appearance: Cooperative. Unkept. Obese. Mild acute respiratory distress Head Exam: Normal inspection Neck Exam: Normal inspection. Non-tender. Normal alignment Pulmonary/Respiratory: Chest non-tender. Coarse bilateral breath sounds, expiratory wheezing. +productive cough present Cardiovascular/Chest: Regular rate and rhythm. S1, S2. NSR. No murmurs. No JVD. Peripheral Pulses: 2+ Radial (R). 2+ Radial (L). 2+ Pedal (R). 2+ Pedal (L) Abdominal Exam: Normal bowel sounds. Soft. Ankle Exam: Left ankle edema, erythema, hot to touch. Right ankle hyperpigmentation with scaly lesions Lower extremities: Left lower extremity edema, erythema, hot to touch. Right lower extremity hyperpigmentation with scaly lesions Neuro/Mental Status: A&O x4. Coherent Thoughts/Psych: Normal thought pattern. Appropriate mood and affect. Good judgement and insight Appearance: Mild acute respiratory distress Skin Exam: abnormal, see above description Labs/Diagnostic Data Labs Test 06/14/25 06:03 06/14/25 06:02 06/13/25 23:35 06/13/25 18:10 Range/Units White Blood Count 14.4 H 4.4-10.8 10^3/uL Red Blood Count 4.17 L 4.5-5.90 10^6/uL Hemoglobin 12.9 L 13.5-17.5 g/dL Hematocrit 38.4 #L 41.0-53.0 % Mean Corpuscular Volume 92.0 80.0-100.0 fL Mean Corpuscular Hemoglobin 31.0 28.0-32.0 pg Mean Corpuscular Hemoglobin Concent 33.7 32.0-36.0 g/dL Red Cell Distribution Width 15.7 H 11.8-14.3 % Platelet Count 204 140-450 10^3/uL Mean Platelet Volume 8.8 6.9-10.8 fL Neutrophils (%) (Auto) 79.8 37.0-80.0 % Lymphocytes (%) (Auto) 8.6 L 10.0-50.0 % Monocytes (%) (Auto) 10.2 0.0-12.0 % Eosinophils (%) (Auto) 0.9 0.0-7.0 % Basophils (%) (Auto) 0.5 0.0-2.0 % Neutrophils # (Auto) 11.5 H 1.6-8.6 10 ^3/uL Lymphocytes # (Auto) 1.2 0.4-5.4 10 ^3/uL Monocytes # (Auto) 1.5 H 0-1.3 10 ^3/uL Eosinophils # (Auto) 0.1 0-0.8 10 ^3/uL Basophils # (Auto) 0.1 0-0.2 10 ^3/uL Nucleated Red Blood Cells 0.0 % Sodium Level 137 136-145 mmol/L Potassium Level 4.1 3.5-5.1 mmol/L Chloride Level 102 98-107 mmol/L Carbon Dioxide Level 27 20-31 mmol/L Anion Gap 8 5-15 Blood Urea Nitrogen 17 9-23 mg/dL Creatinine 1.00 0.700-1.30 mg/dL Glomerular Filtration Rate Calc 86 >90 mL/min BUN/Creatinine Ratio 17.0 10.0-20.0 Serum Glucose 110 H 74-106 mg/dL Calcium Level 9.7 8.7-10.4 mg/dL Total Bilirubin 1.2 H 0.2-1.0 mg/dL Aspartate Amino Transferase (AST) 25 13-40 U/L Alanine Aminotransferase (ALT) 19 7-40 U/L Alkaline Phosphatase 95 46-116 U/L Total Protein 5.4 L 5.7-8.2 g/dL Albumin 3.0 L 3.2-4.8 g/dL Random Vancomycin Level 7.8 5-10 ug/mL POC Glucose 119 H 70-106 mg/dl Troponin I High Sensitivity 6 </=54 ng/L Test 06/13/25 15:30 06/13/25 15:03 06/13/25 15:00 Range/Units Erythrocyte Sedimentation Rate 58 H 0-20 mm/hr Lactic Acid Level 1.6 0.4-2.0 mmol/L C-Reactive Protein High Sensitivity > 20.00 H <1.0 mg/dL B-Type Natriuretic Peptide 46.19 0-100 pg/mL Thyroid Stimulating Hormone (TSH) 0.51 L 0.55-4.78 uIU/mL Urine Color Yellow Yellow Urine Clarity Turbid H Clear Urine pH 7.0 5.0-9.0 Urine Specific [place] 1.014 1.001-1.035 Urine Protein 1+ H Negative Urine Ketones Negative Negative Urine Blood 2+ H Negative /uL Urine Nitrite 2+ H Negative Urine Bilirubin Negative Negative Urine Urobilinogen Normal Negative mg/dL Urine Leukocyte Esterase 1+ Negative /uL Urine RBC 5 0 - 3 /hpf Urine Microscopic WBC 12 H 0-3 /HPF Urine Squamous Epithelial Cells Few <5 /hpf Urine Bacteria Few H None Seen /hpf Urine Mucus Few None Seen Urine Glucose Trace Normal mg/dL Influenza Type A Antigen Negative Negative Influenza Type B Antigen Negative Negative SARS-CoV-2 Antigen (Rapid) Negative NEGATIVE Assessment Sepsis with extensive left lower extremity cellulitis/UTI Likely COPD exacerbation Acute hypoxic respiratory failure Rule out structural heart disease Insulin-dependent diabetes mellitus ?Thyroid tumor Methamphetamine/nicotine dependence Medical noncompliance Obesity Plan/Recommendation (Dr. Blanton) We will continue further cardiac evaluation with a transthoracic echocardiogram to rule out structural heart disease. The patient presents with likely a COPD exacerbation which has not been diagnosed in the past. He also presents with sepsis likely secondary to left lower extremity cellulitis. Acute decompensation of heart failure is not suspected at this time. Continue antibiotic therapy per primary care team. Continue Pulmonology recommendations. Initiate DVT/VTE prophylaxis and nicotine patch. In the setting of an unremarkable TTE, there is no further cardiac work-up indicated at this time. Strongly counseled on medical compliance and methamphetamine/cigarette use cessation. Thank you for allowing us to participate in this patient's care. Please call if you have any questions or concerns. This medical document was created using an electronic medical record system with voice recognition software and computerized dictation system. Although this document has been carefully reviewed, there might still be some phonetic and typographical errors. Occasional wrong-word or ``sound-alike substitutions may have occurred due to the inherent limitations of voice recognition software. These areas are purely typographical due to imperfections of the software programs and do not reflect any compromise in the patient's medical care. Please read the chart carefully and recognize, using context, where these substitutions have occurred. Plan discussed with: Patient, Other NYHA Physical activity limitations: NA Date of Service: Jun 14, 2025 Billing Provider: NICHELLE REYNOLDS POACHER WRINGER OPERATOR Cardiology Common Codes: [id number] INP/OBS CARE (High) NICHELLE REYNOLDS [facility] Jun 14, 2025 12:08
[2025-06-14 13:20] LABS: Magnesium 1.9 mg/dL (1.6-2.6); Triglycerides 170.0 mg/dL (< 150)
[2025-06-14 13:22] LABS: Cholesterol 105.0 mg/dL (< 200); HDL Cholesterol 10.0 mg/dL (40-59)
[2025-06-14] MEDS: NICOTINE 14 MG/24HR TOPICAL PATCH TD ONE (13:31)
[2025-06-14] MEDS: VANCOMYCIN 1GM/250ML KIT 250 ML IV SCH (13:31)
[2025-06-14] MEDS: ENOXAPARIN SOD 40 MG/0.4 ML SYRINGE SC ONE (13:32)
--- NOTE | 2025-06-14 13:42 | DVHPN2 ---
Subjective Patient denies any symptoms at this time Reviewed: Care Plan, H&P, Labs, Medications Changes from previous H/P or p: No Changes General: Per HPI Eyes: No Pain, No Vision change, No Conjunctivae inflammation, No Eyelid inflammation, No Other, No Redness ENT: No Ear pain, No Ear discharge, No Nose pain, No Nose discharge, No Nose congestion, No Mouth pain, No Mouth swelling, No Throat pain, No Throat swelling, No Other Cardiovascular: No Chest Pain, No Palpitations, No Orthopnea, No Paroxysmal Noc. Dyspnea, No Edema, No Lt Headedness, No Other Respiratory: Cough, Shortness of breath, Other Gastrointestinal: No Nausea, No Vomiting, No Abdominal Pain, No Diarrhea, No Constipation, No Melena, No Hematochezia, No Other Genitourinary: No Dysuria, No Frequency, No Incontinence, No Hematuria, No Retention, No Other Musculoskeletal: other Skin: No Rash, No Lesions, No Jaundice, No Bruising, No Other Objective Vitals Vital Signs Date Time Temp Pulse Resp B/P (MAP) Pulse Ox O2 Delivery O2 Flow Rate FiO2 06/14/25 13:24 97.7 84 18 101/61 (74) 95 97.7 06/14/25 08:10 Nasal Cannula* 3 32 Intake/Output Intake and Output 06/14/25 07:00 Intake Total 1150 ml Output Total 875 ml Balance 275 ml Intake Oral 800 ml IV Total 350 ml Output Urine Total 875 ml # Voids 4 General Appearance: Alert, Oriented X3, Cooperative, No acute distress HEENT: Atraumatic, PERRLA Cardiovascular: Normal S1, Normal S2 Abdomen: Normal bowel sounds, Soft, No tenderness Extremities: Normal pulses, Other (Plus three bilateral lower extremity swelling. Were swelling to left lower extremity with cellulitis) Skin: Dry, Intact Psych/Mental Status: Mental status NL, Mood NL Medications Current Medications Medications Dose Ordered Sig/Teresa Route Start Time Stop Time Status Last Admin Dose Admin Atorvastatin Calcium 20 mg HS PO 06/13/25 22:00 06/13/25 21:22 20 MG Aspirin 81 mg DAILY PO 06/14/25 10:00 06/14/25 09:59 81 MG Clonidine HCl 0.1 mg Q4HP PRN PO 06/13/25 16:30 Diagnostic Test (Pha) 1 strip ACHS 06/13/25 17:00 06/14/25 11:30 1 STRIP Insulin Human Regular HS SC 06/13/25 22:00 Insulin Human Regular AC SC 06/13/25 17:00 06/14/25 12:29 3 UNITS Dextrose 50 ml UD PRN IV 06/13/25 16:30 Sodium Chloride 10 ml Q8HR IV 06/13/25 22:00 06/14/25 13:32 10 ML Acetaminophen/ Hydrocodone Bitart 1 tab Q4HP PRN PO 06/13/25 16:30 Ondansetron HCl 4 mg Q4HP PRN IV 06/13/25 16:30 06/13/25 18:08 4 MG Docusate Sodium 100 mg BIDPRN PRN PO 06/13/25 16:30 Acetaminophen 650 mg Q6HP PRN PO 06/13/25 16:30 Morphine Sulfate 2 mg Q4HPRN PRN IV 06/13/25 17:30 Vancomycin HCl 0 ml @ 0 mls/hr UD IV 06/13/25 17:45 Nitroglycerin 0.4 mg Q5MINP PRN SL 06/13/25 17:45 Morphine Sulfate 2 mg Q30M PRN IV 06/13/25 17:45 Carvedilol 6.25 mg Q12HR PO 06/14/25 22:00 Nicotine 1 patch DAILY TD 06/15/25 10:00 Enoxaparin Sodium 40 mg DAILY SC 06/15/25 10:00 Lisinopril 5 mg DAILY PO 06/15/25 10:00 Vancomycin HCl 250 ml @ 200 mls/hr Q8H IV 06/14/25 13:00 06/14/25 13:31 200 MLS/HR Piperacillin Sod/ Tazobactam Sod 100 ml @ 25 mls/hr Q6H IV 06/14/25 14:00 Laboratory Results Laboratory Tests 06/14/25 06:03 Chemistry Test 06/13/25 15:30 06/14/25 06:03 Albumin 3.4 g/dL (3.2-4.8) 3.0 g/dL (3.2-4.8) L Calcium Level 9.8 mg/dL (8.7-10.4) 9.7 mg/dL (8.7-10.4) Total Protein 6.1 g/dL (5.7-8.2) 5.4 g/dL (5.7-8.2) L Magnesium Level 1.9 mg/dL (1.6-2.6) Lipid panel Test 06/14/25 06:03 Cholesterol Level 105 mg/dL (< 200) HDL Cholesterol 10 mg/dL (40-59) L Triglycerides Level 170 mg/dL (< 150) H Cardiac Markers Test 06/13/25 15:30 B-Type Natriuretic Peptide 46.19 pg/mL (0-100) LFT Test 06/13/25 15:30 06/14/25 06:03 Alanine Aminotransferase (ALT) 22 U/L (7-40) 19 U/L (7-40) Alkaline Phosphatase 105 U/L (46-116) 95 U/L (46-116) Aspartate Amino Transferase (AST) 26 U/L (13-40) 25 U/L (13-40) Total Bilirubin 1.7 mg/dL (0.2-1.0) H 1.2 mg/dL (0.2-1.0) H HgA1c, TSH Test 06/13/25 15:30 06/14/25 06:03 Thyroid Stimulating Hormone (TSH) 0.51 uIU/mL (0.55-4.78) L Hemoglobin A1c 5.5 % A1C (<5.7) Urinalysis Test 06/13/25 15:03 Urine Color Yellow (Yellow) Urine Clarity Turbid (Clear) H Urine pH 7.0 (5.0-9.0) Urine Specific [place] 1.014 (1.001-1.035) Urine Protein 1+ (Negative) H Urine Ketones Negative (Negative) Urine Blood 2+ /uL (Negative) H Urine Nitrite 2+ (Negative) H Urine Bilirubin Negative (Negative) Urine Urobilinogen Normal mg/dL (Negative) Urine Leukocyte Esterase 1+ /uL (Negative) Urine RBC 5 /hpf (0 - 3) Urine Microscopic WBC 12 /HPF (0-3) H Urine Squamous Epithelial Cells Few /hpf (<5) Urine Bacteria Few /hpf (None Seen) H Urine Mucus Few (None Seen) Urine Glucose Trace mg/dL (Normal) Labs and/or images reviewed: Labs reviewed by me, Image(s) reviewed by me Assessment/Plan Assessment/Plan Impression: -sepsis -left lower extremity cellulitis -bilateral lower extremity venous stasis ulcers -diabetes mellitus -acute on chronic decompensated diastolic heart failure -obesity -polysubstance abuse with tobacco and nicotine -primary hypertension Plan: -continue antibiotic therapy with vancomycin and Zosyn -continue IV diuresis, decreased to 40 mg daily -continue beta-lorene and CLIFF inhibitor -regular insulin sliding scale -wound care consultation -horner cultures -repeat labs in a.m. Total time spent with patient discussing and formulating plan of care: 35 minutes. This medical document was created using an electronic medical record system with [employer] dictation system. Although this document has been carefully reviewed, there may still be some phonetic and typographical errors. These areas are purely typographical due to imperfections of the software programs, and do not reflect any compromise in the patient's medical care. Plan discussed with: Patient, Other (RN, Sister) My Orders Orders - PEYTON GASPAR NP Procedure Category Date Status Time Basic Metabolic Panel LAB 06/15/25 Verified 04:00 D-Dimer LAB 06/15/25 Verified 04:00 Date of Service: Jun 14, 2025 Billing Provider: PEYTON GASPAR NP Common Visit Codes: [id number] INP/OBS CARE(HIGH) PEYTON GASPAR NP Jun 14, 2025 13:42
[2025-06-14] MEDS: PIPERACILLIN-TAZOB 3.375GM 100 ML IV SCH (14:00)
[2025-06-14 14:24] LABS: Benzodiazephine Screen, Urine Neg (NEGATIVE); Cannabinoid Screen, Urine Pos (NEGATIVE)
[2025-06-14 14:29] LABS: Amphetamine Screen, Urine Pos (NEGATIVE); Barbiturate Scree,Urine Neg (NEGATIVE); Cocaine Screen, Urine Neg (NEGATIVE); Opiate Scree,Urine Neg (NEGATIVE); Phencyclidine Screen, Urine Neg (NEGATIVE)
[2025-06-14] MEDS: HYDROcodone-ACET 5/325MG TAB PO PRN (14:40)
--- NOTE | 2025-06-14 14:56 | DVHSR ---
APPROVED REPORT EXAM: Two-dimensional and M-mode echocardiogram with Doppler and color Doppler. Blood Pressure: 112/73 mmHg INDICATION CHF Exacerbation RISK FACTORS Height: 7' 2", Weight: 399 DIMENSIONS LVDd5.3 (3.8-5.7cm)LA (2D)4.0 (1.9-4.0cm)Aortic Root4.2 (2.0-3.7cm) LVDs3.7 (2.5-4.0cm)LA (MM) (1.9-4.0cm)Aortic Cusp Exc2.6 (1.5-2.0cm) EF (%) 57.0 (55-70%)Rt. Atrium5.4 (1.9-4.0cm)Asc. Aorta cm IVSd1.4 (0.7-1.1cm)RV (D) (1.8-2.4cm) PWd1.2 (0.7-1.1cm) Mitral Valve MitralMitral Stenosis E wave1.00m/sMV Mean GR.mmHg A wave1.00m/sMV Peak GR.mmHg E/A ratio1.02D MVAcm2 Aortic Valve Aortic ValveAortic Stenosis V11.10m/Nurys Mean GR.7mmHg V21.80m/Nurys Peak GR.13mmHg LVOT Diameter3.0 (1.8-2.4cm)Doppler AVA4.32cm2 Pulmonic Valve V21.00m/s Other Information Quality : Rhythm : Abnormal Conclusion MILD LVH AND MILD LV DIASTOLIC DYSFUNCTION LV EF IS 70% AND IS NORMAL NORMAL VALVES SLIGHTLY DILATED RV NO EFFUSION
--- NOTE | 2025-06-14 15:20 | DVHINCON2 ---
Date of service: Jun 14, 2025 Referring Physician Umberto Inman NP Reason for Consultation Acute respiratory failure History of Present Illness History Source: Patient Exam Limitations: No limitations HPI Patient is a 60-year old gentleman with a history of morbid obesity, chronic cellulitis and heavy smoker who presented with generalized weakness and pain. Was seen in the emergency room where the concern was raised for sepsis and patient was admitted for IV antibiotics. He required supplemental oxygen and pulmonology was consulted to assist in management. COPD likely. Past Medical History Cardiac: No pertinent Hx Pulmonary: No pertinent Hx Central Nervous System: No pertinent Hx GI: No pertinent Hx Hemotology/Oncology: No pertinent Hx Hepatobiliary: No pertinent Hx Psychiatric: No pertinent Hx Musculoskeletal: No pertinent Hx Rheumotologic: No pertinent Hx Infectious Disease: No peritnent Hx ENT: No pertinent Hx Renal/: No pertinent Hx Endocrine: No pertinent Hx Dermatology: No pertinent Hx Past Surgical History: No pertinent Hx Family History: No pertinent Hx Patient Family History: Patient reports no known family medical history. Smoker: Positive Alocohol: None Drugs: None Lives with: With family Domestic Violence: Neg Review of Systems Constitutional: Weakness Ears, Nose, & Throat: No symptom reported Eyes: No symptom reported Pulmonary/Respiratory: No symptom reported Cardiovascular: No symptom reported Gastrointestinal: No symptom reported Genitourinary: No symptom reported Musculoskeletal: No symptom reported Skin: No symptom reported Psychiatric: No symptom reported Endocrine: No symptom reported Hemotologic/Lymphatic: No symptom reported H&P Exam Vital Signs Vital Signs Date Time Temp Pulse Resp B/P (MAP) Pulse Ox O2 Delivery O2 Flow Rate FiO2 06/14/25 13:24 97.7 84 18 101/61 (74) 95 97.7 06/14/25 08:10 Nasal Cannula* 3 32 General Appeara: Well developed, Well nourished, Normal Appearance Head Exam: Normal inspection Eye Exam: bilateral eye Normal inspection, bilateral eye PERRL, bilateral eye EOMI Ear Exam: bilateral ear Auricle normal, bilateral ear Canal normal, bilateral ear TM normal Nasal Exam: Normal inspection Mouth: Normal Inspection Pulmonary/Respiratory: Decreased breath sounds Cardiovascular/Chest: Normal inspection Peripheral Pulses: 4+ Radial (R), 4+ Radial (L), 4+ Brachial (R), 4+ Brachial (L) Abdominal Exam: Normal bowel sounds Labs/Xrays Labs Test 06/14/25 12:08 10/5/25 06:03 06/13/25 23:35 06/13/25 18:10 Range/Units POC Glucose 162 H 70-106 mg/dl White Blood Count 14.4 H 4.4-10.8 10^3/uL Red Blood Count 4.17 L 4.5-5.90 10^6/uL Hemoglobin 12.9 L 13.5-17.5 g/dL Hematocrit 38.4 #L 41.0-53.0 % Mean Corpuscular Volume 92.0 80.0-100.0 fL Mean Corpuscular Hemoglobin 31.0 28.0-32.0 pg Mean Corpuscular Hemoglobin Concent 33.7 32.0-36.0 g/dL Red Cell Distribution Width 15.7 H 11.8-14.3 % Platelet Count 204 140-450 10^3/uL Mean Platelet Volume 8.8 6.9-10.8 fL Neutrophils (%) (Auto) 79.8 37.0-80.0 % Lymphocytes (%) (Auto) 8.6 L 10.0-50.0 % Monocytes (%) (Auto) 10.2 0.0-12.0 % Eosinophils (%) (Auto) 0.9 0.0-7.0 % Basophils (%) (Auto) 0.5 0.0-2.0 % Neutrophils # (Auto) 11.5 H 1.6-8.6 10 ^3/uL Lymphocytes # (Auto) 1.2 0.4-5.4 10 ^3/uL Monocytes # (Auto) 1.5 H 0-1.3 10 ^3/uL Eosinophils # (Auto) 0.1 0-0.8 10 ^3/uL Basophils # (Auto) 0.1 0-0.2 10 ^3/uL Nucleated Red Blood Cells 0.0 % Sodium Level 137 136-145 mmol/L Potassium Level 4.1 3.5-5.1 mmol/L Chloride Level 102 98-107 mmol/L Carbon Dioxide Level 27 20-31 mmol/L Anion Gap 8 5-15 Blood Urea Nitrogen 17 9-23 mg/dL Creatinine 1.00 0.700-1.30 mg/dL Glomerular Filtration Rate Calc 86 >90 mL/min BUN/Creatinine Ratio 17.0 10.0-20.0 Serum Glucose 110 H 74-106 mg/dL Hemoglobin A1c 5.5 <5.7 % A1C Calcium Level 9.7 8.7-10.4 mg/dL Magnesium Level 1.9 1.6-2.6 mg/dL Total Bilirubin 1.2 H 0.2-1.0 mg/dL Aspartate Amino Transferase (AST) 25 13-40 U/L Alanine Aminotransferase (ALT) 19 7-40 U/L Alkaline Phosphatase 95 46-116 U/L Total Protein 5.4 L 5.7-8.2 g/dL Albumin 3.0 L 3.2-4.8 g/dL Triglycerides Level 170 H < 150 mg/dL Cholesterol Level 105 < 200 mg/dL LDL Cholesterol 60 < 100 mg/dL HDL Cholesterol 10 L 40-59 mg/dL Random Vancomycin Level 7.8 5-10 ug/mL Troponin I High Sensitivity 6 </=54 ng/L Test 06/13/25 15:30 06/13/25 15:03 06/13/25 15:00 Range/Units Erythrocyte Sedimentation Rate 58 H 0-20 mm/hr Lactic Acid Level 1.6 0.4-2.0 mmol/L C-Reactive Protein High Sensitivity > 20.00 H <1.0 mg/dL B-Type Natriuretic Peptide 46.19 0-100 pg/mL Thyroid Stimulating Hormone (TSH) 0.51 L 0.55-4.78 uIU/mL Urine Color Yellow Yellow Urine Clarity Turbid H Clear Urine pH 7.0 5.0-9.0 Urine Specific [place] 1.014 1.001-1.035 Urine Protein 1+ H Negative Urine Ketones Negative Negative Urine Blood 2+ H Negative /uL Urine Nitrite 2+ H Negative Urine Bilirubin Negative Negative Urine Urobilinogen Normal Negative mg/dL Urine Leukocyte Esterase 1+ Negative /uL Urine RBC 5 0 - 3 /hpf Urine Microscopic WBC 12 H 0-3 /HPF Urine Squamous Epithelial Cells Few <5 /hpf Urine Bacteria Few H None Seen /hpf Urine Mucus Few None Seen Urine Glucose Trace Normal mg/dL Urine Opiates Screen Neg NEGATIVE Urine Fentanyl Screen Neg NEGATIVE Urine Barbiturates Screen Neg NEGATIVE Urine Phencyclidine Screen Neg NEGATIVE Urine Amphetamines Screen Pos NEGATIVE Urine Benzodiazepines Screen Neg NEGATIVE Urine Cocaine Screen Neg NEGATIVE Urine Cannabinoids Screen Pos NEGATIVE Influenza Type A Antigen Negative Negative Influenza Type B Antigen Negative Negative SARS-CoV-2 Antigen (Rapid) Negative NEGATIVE Assessment/Plan Plan Impression Acute hypoxemic respiratory failure Cellulitis Sepsis COPD Patient seen and examined Events Low oxygen requirements On 2 liters nasal cannula Vital signs stable Labs and imaging reviewed Management Supplemental oxygen Titrate to maintain sats 90% or above Incentive spirometry Antibiotics- Zosyn Bronchodilators Okay to withhold steroids in absence of wheezing Monitor renal function Monitor electrolytes Supplement as needed DVT prophylaxis Plan discussed with: Patient JUAN FRANCISCO VILLAR MD Jun 14, 2025 15:20
[2025-06-14 20:16] LABS: Amphetamine Screen, Urine Pos (NEGATIVE)
[2025-06-14 20:17] LABS: Cannabinoid Screen, Urine Neg (NEGATIVE); Opiate Scree,Urine Neg (NEGATIVE)
[2025-06-14 20:18] LABS: Barbiturate Scree,Urine Neg (NEGATIVE); Benzodiazephine Screen, Urine Neg (NEGATIVE); Cocaine Screen, Urine Neg (NEGATIVE); Phencyclidine Screen, Urine Neg (NEGATIVE)
[2025-06-14] MEDS: CARVEDILOL 12.5 MG TAB PO SCH (21:43)
--- NOTE | 2025-06-14 23:34 | DVHINCON2 ---
Date Seen: Jun 14, 2025 Referring Physician RANJANA Inman Reason for Consultation CHF exacerbation History of Present Illness This is a 60-year-old male with a past medical history of unspecified congestive heart failure, insulin-dependent diabetes mellitus, recurrent left lower extremity cellulitis, unspecified thyroid tumor diagnosed three years ago, obesity, and methamphetamine/nicotine dependence including 40 pack-years who presented to the emergency room with a complaint of SOB for one week. The patient complains of progressive shortness of breath associated with a productive cough with yellow sputum, BEJARANO, left lower extremity erythema/swelling, pyrexia, and myalgia. Denies chest pain, palpitations, diaphoresis, dizziness, or syncopal events. He underwent a 12 lead electrocardiogram revealing a sinus rhythm with associated premature ventricular contractions and suggestive of left atrial enlargement. Serial troponin levels are negative. Denies following up with a activities aide in the outpatient setting. Denies undergoing any invasive cardiac workup in the past. States he recently moved to this area to be closer to his family. Chest x-ray showed NAD. Patient was admitted to the hospital. I am asked to consult on this patient. Past Medical History Past medical history reviewed. No other significant than mentioned above. Past Surgical History Inguinal hernia repair Umbilical hernia repair Family History: Patient reports no known family medical history. Allergies: Coded Allergies: NO KNOWN ALLERGIES (Unverified , 06/13/25) Current Medications Current Medications Medications (Trade) Dose Ordered Sig/Teresa Route PRN Reason Start Time Stop Time Status Last Admin Piperacillin Sod/ Tazobactam Sod 100 ml @ 25 mls/hr Q8HR IV 06/13/25 22:00 06/14/25 13:02 DC 06/14/25 06:11 Furosemide (Lasix Injection) 40 mg DAILY IV 06/14/25 10:06/14/25 12:19 DC 06/14/25 09:59 Atorvastatin Calcium (Lipitor) 20 mg HS PO 06/13/25 22:00 06/13/25 21:22 Aspirin 81 mg DAILY PO 06/14/25 10:06/14/25 09:59 Clonidine HCl (Catapres Tablet) 0.1 mg Q4HP PRN PO SBP>150 06/13/25 16:30 Carvedilol (Coreg Tablet) 12.5 mg Q12HR PO 06/13/25 22:00 06/14/25 12:18 DC 06/14/25 09:59 Diagnostic Test (Pha) (Accu-Chek Comfort Curve T) 1 strip ACHS 06/13/25 17:00 06/14/25 11:30 Insulin Human Regular (InsuLIN R) HS SC 06/13/25 22:00 Insulin Human Regular (InsuLIN R) AC SC 06/13/25 17:00 06/14/25 12:29 Dextrose 50 ml UD PRN IV Blood Sugar LESS THAN 60 06/13/25 16:30 Sodium Chloride (Saline Lock Ns) 10 ml Q8HR IV 06/13/25 22:00 06/14/25 13:32 Acetaminophen/ Hydrocodone Bitart ([place] 5/325MG Tab) 1 tab Q4HP PRN PO MODERATE PAIN (4-6 PAIN SCALE) 06/13/25 16:30 06/14/25 14:40 Ondansetron HCl (Zofran) 4 mg Q4HP PRN IV NAUSEA / VOMITING 06/13/25 16:30 06/13/25 18:08 Docusate Sodium (Colace Capsule) 100 mg BIDPRN PRN PO FOR CONSTIPATION 06/13/25 16:30 Acetaminophen (Tylenol Tablet) 650 mg Q6HP PRN PO PAIN SCALE 1-3 OR TEMP>100.4 06/13/25 16:30 Morphine Sulfate 2 mg Q4HPRN PRN IV SEVERE PAIN (7-10 PAIN SCALE) 06/13/25 17:30 Vancomycin HCl 0 ml @ 0 mls/hr UD IV 06/13/25 17:45 Nitroglycerin (Ntrostat Sublingual) 0.4 mg Q5MINP PRN SL FOR CHEST PAIN 06/13/25 17:45 Morphine Sulfate 2 mg Q30M PRN IV FOR CHEST PAIN 06/13/25 17:45 Carvedilol (Coreg Tablet) 6.25 mg Q12HR PO 06/14/25 22:00 Nicotine (Nicoderm 14MG/ 24HR) 1 patch DAILY TD 06/15/25 10:00 Enoxaparin Sodium (Lovenox) 40 mg DAILY SC 06/15/25 10:00 Lisinopril (Zestril Tablet) 5 mg DAILY PO 06/15/25 10:00 Vancomycin HCl 250 ml @ 200 mls/hr Q8H IV 06/14/25 13:00 06/14/25 13:31 Piperacillin Sod/ Tazobactam Sod 100 ml @ 25 mls/hr Q6H IV 06/14/25 14:00 06/14/25 14:00 Furosemide (Lasix Injection) 40 mg BIDD IV 06/14/25 18:00 Review of Systems Constitutional: Pyrexia, myalgia Ears, Nose, & Throat: No symptom reported Eyes: No symptom reported Neurological: No symptoms reported Pulmonary/Respiratory: SOB, productive cough Cardiovascular: No symptom reported Gastrointestinal: No symptom reported Genitourinary: No symptom reported Musculoskeletal: RLE erythema/swelling Skin: No symptom reported Psychiatric: No symptom reported Endocrine: No symptom reported Hemotologic/Lymphatic: No symptom reported Vital Signs Vital Signs Date Time Temp Pulse Resp B/P (MAP) Pulse Ox O2 Delivery O2 Flow Rate FiO2 06/14/25 13:24 97.7 84 18 101/61 (74) 95 97.7 06/14/25 08:10 Nasal Cannula* 3 32 Physical Exam GENERAL: Alert and oriented x 3. Unkept. Obese. Mild acute respiratory distress. EYES: PERRL, EOMI. Anicteric. HENT: Moist mucous membranes. LUNGS: Productive cough present, decreased breath sounds. CARDIOVASCULAR: Regular rate and rhythm. ABDOMEN: Soft, nontender and nondistended. EXTREMITIES: Left ankle edema, erythema, hot to touch. Right ankle hyperpigmentation with scaly lesions. NEUROLOGIC: No focal neurological deficits. SKIN: Warm, dry. Labs/Diagnostic Data Labs Test 06/14/25 12:08 06/14/25 06:03 06/13/25 23:35 06/13/25 18:10 Range/Units POC Glucose 162 H 70-106 mg/dl White Blood Count 14.4 H 4.4-10.8 10^3/uL Red Blood Count 4.17 L 4.5-5.90 10^6/uL Hemoglobin 12.9 L 13.5-17.5 g/dL Hematocrit 38.4 #L 41.0-53.0 % Mean Corpuscular Volume 92.0 80.0-100.0 fL Mean Corpuscular Hemoglobin 31.0 28.0-32.0 pg Mean Corpuscular Hemoglobin Concent 33.7 32.0-36.0 g/dL Red Cell Distribution Width 15.7 H 11.8-14.3 % Platelet Count 204 140-450 10^3/uL Mean Platelet Volume 8.8 6.9-10.8 fL Neutrophils (%) (Auto) 79.8 37.0-80.0 % Lymphocytes (%) (Auto) 8.6 L 10.0-50.0 % Monocytes (%) (Auto) 10.2 0.0-12.0 % Eosinophils (%) (Auto) 0.9 0.0-7.0 % Basophils (%) (Auto) 0.5 0.0-2.0 % Neutrophils # (Auto) 11.5 H 1.6-8.6 10 ^3/uL Lymphocytes # (Auto) 1.2 0.4-5.4 10 ^3/uL Monocytes # (Auto) 1.5 H 0-1.3 10 ^3/uL Eosinophils # (Auto) 0.1 0-0.8 10 ^3/uL Basophils # (Auto) 0.1 0-0.2 10 ^3/uL Nucleated Red Blood Cells 0.0 % Sodium Level 137 136-145 mmol/L Potassium Level 4.1 3.5-5.1 mmol/L Chloride Level 102 98-107 mmol/L Carbon Dioxide Level 27 20-31 mmol/L Anion Gap 8 5-15 Blood Urea Nitrogen 17 9-23 mg/dL Creatinine 1.00 0.700-1.30 mg/dL Glomerular Filtration Rate Calc 86 >90 mL/min BUN/Creatinine Ratio 17.0 10.0-20.0 Serum Glucose 110 H 74-106 mg/dL Hemoglobin A1c 5.5 <5.7 % A1C Calcium Level 9.7 8.7-10.4 mg/dL Magnesium Level 1.9 1.6-2.6 mg/dL Total Bilirubin 1.2 H 0.2-1.0 mg/dL Aspartate Amino Transferase (AST) 25 13-40 U/L Alanine Aminotransferase (ALT) 19 7-40 U/L Alkaline Phosphatase 95 46-116 U/L Total Protein 5.4 L 5.7-8.2 g/dL Albumin 3.0 L 3.2-4.8 g/dL Triglycerides Level 170 H < 150 mg/dL Cholesterol Level 105 < 200 mg/dL LDL Cholesterol 60 < 100 mg/dL HDL Cholesterol 10 L 40-59 mg/dL Random Vancomycin Level 7.8 5-10 ug/mL Troponin I High Sensitivity 6 </=54 ng/L Test 06/13/25 15:30 06/13/25 15:03 06/13/25 15:00 Range/Units Erythrocyte Sedimentation Rate 58 H 0-20 mm/hr Lactic Acid Level 1.6 0.4-2.0 mmol/L C-Reactive Protein High Sensitivity > 20.00 H <1.0 mg/dL B-Type Natriuretic Peptide 46.19 0-100 pg/mL Thyroid Stimulating Hormone (TSH) 0.51 L 0.55-4.78 uIU/mL Urine Color Yellow Yellow Urine Clarity Turbid H Clear Urine pH 7.0 5.0-9.0 Urine Specific [place] 1.014 1.001-1.035 Urine Protein 1+ H Negative Urine Ketones Negative Negative Urine Blood 2+ H Negative /uL Urine Nitrite 2+ H Negative Urine Bilirubin Negative Negative Urine Urobilinogen Normal Negative mg/dL Urine Leukocyte Esterase 1+ Negative /uL Urine RBC 5 0 - 3 /hpf Urine Microscopic WBC 12 H 0-3 /HPF Urine Squamous Epithelial Cells Few <5 /hpf Urine Bacteria Few H None Seen /hpf Urine Mucus Few None Seen Urine Glucose Trace Normal mg/dL Urine Opiates Screen Neg NEGATIVE Urine Fentanyl Screen Neg NEGATIVE Urine Barbiturates Screen Neg NEGATIVE Urine Phencyclidine Screen Neg NEGATIVE Urine Amphetamines Screen Pos NEGATIVE Urine Benzodiazepines Screen Neg NEGATIVE Urine Cocaine Screen Neg NEGATIVE Urine Cannabinoids Screen Pos NEGATIVE Influenza Type A Antigen Negative Negative Influenza Type B Antigen Negative Negative SARS-CoV-2 Antigen (Rapid) Negative NEGATIVE Assessment Sepsis with extensive left lower extremity cellulitis/UTI. Likely COPD exacerbation. Acute hypoxic respiratory failure. Rule out structural heart disease. Insulin-dependent diabetes mellitus. ?Thyroid tumor. Methamphetamine/nicotine dependence. Medical noncompliance. Obesity. Plan/Recommendation I agree with your ongoing assessment and care of plan. Patient has been seen by Rachel Laureano NP on my behalf, her and I discussed the plan with the patient. We will continue further cardiac evaluation with a transthoracic echocardiogram to rule out structural heart disease. The patient presents with likely a COPD exacerbation which has not been diagnosed in the past. He also presents with sepsis likely secondary to left lower extremity cellulitis. Acute decompensation of heart failure is not suspected at this time. Continue antibiotic therapy per primary care team. Continue Pulmonology recommendations. Initiate DVT/VTE prophylaxis and nicotine patch. In the setting of an unremarkable TTE, there is no further cardiac work-up indicated at this time. Strongly counseled on medical compliance and methamphetamine/cigarette use cessation. Additional plan as per the hospital course. Plan discussed with: Patient NYHA Physical activity limitations: NA Date of Service: Jun 14, 2025 Billing Provider: SKYLA MAXWELL MD Cardiology Common Codes: [id number] INP/OBS CARE (High) Cardiology Consultation Codes: [id number] CONSULT <45MIN SKYLA MAXWELL MD Jun 14, 2025 14:55
[2025-06-15] VITALS (8 sets, daily range): BP systolic 106–142; BP diastolic 61–88; PULSE 75–87; RESP 16–18; TEMP 97.6–98.5; O2SAT 95–99
[2025-06-15 04:12] LABS: Chloride 102 mmol/L (98-107); Hematocrit 37.3 % (41.0-53.0); Hemoglobin 12.8 g/dL (13.5-17.5); Mean Corpuscular Hemoglobin 31.0 pg (28.0-32.0); Mean Corpuscular Volume 90.5 fL (80.0-100.0); Nucleated Red Blood Cells % 0.0 %; Potassium 3.8 mmol/L (3.5-5.1); Sodium 139 mmol/L (136-145)
[2025-06-15 04:13] LABS: Anion Gap 8 (5-15); Calcium 10.2 mg/dL (8.7-10.4); Carbon Dioxide 29 mmol/L (20-31)
[2025-06-15 04:18] LABS: BUN/Creatinine Ratio 16.3 (10.0-20.0); Blood Urea Nitrogen 15 mg/dL (9-23)
[2025-06-15 04:28] LABS: Glucose 124 mg/dL (74-106)
--- NOTE | 2025-06-15 05:36 | DVH ---
CHEST RADIOGRAPH Indication: COPD exacerbation Technique: 1 view Comparison: XY CHEST PORTABLE on DOS: 06/13/25 FINDINGS: Lines and Tubes: External leads. Lungs/Pleura: Low lung volumes. No consolidation or evident pleural abnormality; the right costophren ic angle is excluded. Similar mid to basilar interstitial opacities. Cardiomediastinum: Unchanged. Other: Unchanged osseous structures. IMPRESSION: Decreased lung volumes without acute cardiopulmonary abnormality or other interval change from 2 days prior.
[2025-06-15] MEDS: LISINOPRIL 5 MG TAB PO SCH (08:30)
[2025-06-15] MEDS: ENOXAPARIN SOD 40 MG/0.4 ML SYRINGE SC SCH (08:31)
[2025-06-15] MEDS: NICOTINE 14 MG/24HR TOPICAL PATCH TD SCH (08:32)
--- NOTE | 2025-06-15 09:26 | DVHPN2 ---
Subjective Patient denies any symptoms at this time Reviewed: Care Plan, H&P, Labs, Medications Changes from previous H/P or p: No Changes General: Per HPI Eyes: No Pain, No Vision change, No Conjunctivae inflammation, No Eyelid inflammation, No Other, No Redness ENT: No Ear pain, No Ear discharge, No Nose pain, No Nose discharge, No Nose congestion, No Mouth pain, No Mouth swelling, No Throat pain, No Throat swelling, No Other Cardiovascular: No Chest Pain, No Palpitations, No Orthopnea, No Paroxysmal Noc. Dyspnea, No Edema, No Lt Headedness, No Other Respiratory: Cough, Shortness of breath, Other Gastrointestinal: No Nausea, No Vomiting, No Abdominal Pain, No Diarrhea, No Constipation, No Melena, No Hematochezia, No Other Genitourinary: No Dysuria, No Frequency, No Incontinence, No Hematuria, No Retention, No Other Musculoskeletal: other Skin: No Rash, No Lesions, No Jaundice, No Bruising, No Other Objective Vitals Vital Signs Date Time Temp Pulse Resp B/P (MAP) Pulse Ox O2 Delivery O2 Flow Rate FiO2 06/15/25 09:17 97.9 86 18 118/88 (98) 96 97.9 06/14/25 20:00 Room Air* 0 21 Intake/Output Intake and Output 06/15/25 07:00 Intake Total 1475 ml Output Total 3700 ml Balance -2225 ml Intake Oral 1225 ml IV Total 250 ml Output Urine Total 3700 ml General Appearance: Alert, Oriented X3, Cooperative, No acute distress HEENT: Atraumatic, PERRLA Cardiovascular: Normal S1, Normal S2 Abdomen: Normal bowel sounds, Soft, No tenderness Extremities: Normal pulses, Other (Plus three bilateral lower extremity swelling. Were swelling to left lower extremity with cellulitis) Skin: Dry, Intact Psych/Mental Status: Mental status NL, Mood NL Medications Current Medications Medications Dose Ordered Sig/Teresa Route Start Time Stop Time Status Last Admin Dose Admin Atorvastatin Calcium 20 mg HS PO 06/13/25 22:00 06/14/25 21:43 20 MG Aspirin 81 mg DAILY PO 06/14/25 10:00 06/15/25 08:29 81 MG Clonidine HCl 0.1 mg Q4HP PRN PO 06/13/25 16:30 Diagnostic Test (Pha) 1 strip ACHS 06/13/25 17:00 06/15/25 05:41 1 STRIP Insulin Human Regular HS SC 06/13/25 22:00 Insulin Human Regular AC SC 06/13/25 17:00 06/14/25 18:03 2 UNITS Dextrose 50 ml UD PRN IV 06/13/25 16:30 Sodium Chloride 10 ml Q8HR IV 06/13/25 22:00 06/15/25 05:36 10 ML Acetaminophen/ Hydrocodone Bitart 1 tab Q4HP PRN PO 06/13/25 16:30 06/14/25 14:40 1 TAB Ondansetron HCl 4 mg Q4HP PRN IV 06/13/25 16:30 06/13/25 18:08 4 MG Docusate Sodium 100 mg BIDPRN PRN PO 06/13/25 16:30 Acetaminophen 650 mg Q6HP PRN PO 06/13/25 16:30 Morphine Sulfate 2 mg Q4HPRN PRN IV 06/13/25 17:30 Vancomycin HCl 0 ml @ 0 mls/hr UD IV 06/13/25 17:45 Nitroglycerin 0.4 mg Q5MINP PRN SL 06/13/25 17:45 Morphine Sulfate 2 mg Q30M PRN IV 06/13/25 17:45 Carvedilol 6.25 mg Q12HR PO 06/14/25 22:00 06/15/25 08:31 6.25 MG Nicotine 1 patch DAILY TD 06/15/25 10:00 06/15/25 08:32 1 PATCH Enoxaparin Sodium 40 mg DAILY SC 06/15/25 10:00 06/15/25 08:31 40 MG Lisinopril 5 mg DAILY PO 06/15/25 10:00 06/15/25 08:30 5 MG Vancomycin HCl 250 ml @ 200 mls/hr Q8H IV 06/14/25 13:00 06/15/25 05:36 200 MLS/HR Piperacillin Sod/ Tazobactam Sod 100 ml @ 25 mls/hr Q6H IV 06/14/25 14:00 06/15/25 08:29 25 MLS/HR Furosemide 40 mg DAILY IV 06/16/25 09:00 UNV Laboratory Results Laboratory Tests 06/15/25 03:45 Chemistry Test 06/15/25 03:45 Calcium Level 10.2 mg/dL (8.7-10.4) Coagulation Test 06/15/25 03:45 D-Dimer, Quantitative 1.35 mg/L FEU (0.0-0.49) H Urinalysis Test 06/13/25 15:03 Urine Color Yellow (Yellow) Urine Clarity Turbid (Clear) H Urine pH 7.0 (5.0-9.0) Urine Specific [place] 1.014 (1.001-1.035) Urine Protein 1+ (Negative) H Urine Ketones Negative (Negative) Urine Blood 2+ /uL (Negative) H Urine Nitrite 2+ (Negative) H Urine Bilirubin Negative (Negative) Urine Urobilinogen Normal mg/dL (Negative) Urine Leukocyte Esterase 1+ /uL (Negative) Urine RBC 5 /hpf (0 - 3) Urine Microscopic WBC 12 /HPF (0-3) H Urine Squamous Epithelial Cells Few /hpf (<5) Urine Bacteria Few /hpf (None Seen) H Urine Mucus Few (None Seen) Urine Glucose Trace mg/dL (Normal) Microbiology Microbiology Date/Time Source Procedure Growth Status 06/13/25 15:30 Blood Blood Culture - Preliminary NO GROWTH AFTER 24 HOURS OF INCUBATION. Resulted Labs and/or images reviewed: Labs reviewed by me, Image(s) reviewed by me Assessment/Plan Assessment/Plan Impression: -sepsis -left lower extremity cellulitis -bilateral lower extremity venous stasis ulcers -diabetes mellitus -acute on chronic decompensated diastolic heart failure -obesity -polysubstance abuse with tobacco and nicotine -primary hypertension Plan: Events: No events overnight. Noted decrease swelling to left lower extremity. Persistent erythema. Repeat chest x-ray with no acute changes. -continue antibiotic therapy with vancomycin and Zosyn -continue IV diuresis, decreased to 40 mg daily -continue beta-lorene and CLIFF inhibitor -regular insulin sliding scale -wound care consultation -horner cultures -repeat labs in a.m. Total time spent with patient discussing and formulating plan of care: 35 minutes. This medical document was created using an electronic medical record system with [employer] dictation system. Although this document has been carefully reviewed, there may still be some phonetic and typographical errors. These areas are purely typographical due to imperfections of the software programs, and do not reflect any compromise in the patient's medical care. Plan discussed with: Patient, Other (RN) My Orders Orders - PEYTON GASPAR DIE MAINTENANCE Procedure Category Date Status Time Furosemide Injection PHA 06/16/25 Logged (Lasix Injection) 09:00 Basic Metabolic Panel LAB 06/16/25 Verified 04:00 Glucose Blood PHA 06/15/25 Verified (Accu-Chek Comfort 11:30 Mild Sliding Scale PHA 06/15/25 Verified 11:30 Dextrose 50% Syringe PHA 06/15/25 Verified 09:30 Complete Blood Count LAB 06/16/25 Verified 04:00 Date of Service: Jun 15, 2025 Billing Provider: PEYTON GASPAR NP Common Visit Codes: [id number] INP/OBS CARE(HIGH) PEYTON GASPAR NP Jun 15, 2025 09:26
[2025-06-15] MEDS ORDERED: DEXTROSE (50%) 50ML SYRG IV PRN (09:30)
[2025-06-15 11:07] LABS: Hepatitis B Surface Antigen Negative (Negative)
[2025-06-15 11:30] LABS: Free T4 (Free Thyroxine) 1.17 ng/dL (0.89-1.76)
[2025-06-15] MEDS: ACCU-CHEK COMFORT CURVE STRIP VI SCH (11:30)
[2025-06-15] MEDS: InsuLIN REG 1unit/0.01ml Soln (100units/ml) SC SCH (11:31)
[2025-06-15 11:36] LABS: Hepatitis C Antibody Negative (Negative)
[2025-06-15] MEDS ORDERED: MORPHINE SULFATE 4 MG/ML SYR/VIAL IV PRN (14:00)
[2025-06-15] MEDS: MORPHINE SULFATE 4 MG/ML SYR/VIAL IV PRN (14:20)
--- NOTE | 2025-06-15 18:14 | DVHPN2 ---
Progress Note - Dictate Date Seen: Jun 15, 2025 Medical Necessity Reason Pt with a Central, PICC or Fol: No vital signs Vital Sign Date Time Temp Pulse Resp B/P (MAP) Pulse Ox O2 Delivery O2 Flow Rate FiO2 06/15/25 17:01 97.6 87 18 126/61 (82) 95 97.6 06/15/25 08:10 Room Air* 0 21 Total Intake and Output 06/14/25 06/14/25 06/15/25 15:00 23:00 07:00 Intake Total 975 ml 500 ml Output Total 1800 ml 1900 ml Balance -825 ml -1400 ml medications Current Medications Medications Dose Ordered Sig/Teresa Route Start Time Stop Time Status Last Admin Dose Admin Atorvastatin Calcium 20 mg HS PO 06/13/25 22:00 06/14/25 21:43 20 MG Aspirin 81 mg DAILY PO 06/14/25 10:00 06/15/25 08:29 81 MG Sodium Chloride 10 ml Q8HR IV 06/13/25 22:00 06/15/25 13:07 10 ML Acetaminophen/ Hydrocodone Bitart 1 tab Q4HP PRN PO 06/13/25 16:30 06/14/25 14:40 1 TAB Ondansetron HCl 4 mg Q4HP PRN IV 06/13/25 16:30 06/13/25 18:08 4 MG Docusate Sodium 100 mg BIDPRN PRN PO 06/13/25 16:30 Acetaminophen 650 mg Q6HP PRN PO 06/13/25 16:30 Vancomycin HCl 0 ml @ 0 mls/hr UD IV 06/13/25 17:45 Nitroglycerin 0.4 mg Q5MINP PRN SL 06/13/25 17:45 Carvedilol 6.25 mg Q12HR PO 06/14/25 22:00 06/15/25 08:31 6.25 MG Nicotine 1 patch DAILY TD 06/15/25 10:00 06/15/25 08:32 1 PATCH Enoxaparin Sodium 40 mg DAILY SC 06/15/25 10:00 06/15/25 08:31 40 MG Lisinopril 5 mg DAILY PO 06/15/25 10:00 06/15/25 08:30 5 MG Vancomycin HCl 250 ml @ 200 mls/hr Q8H IV 06/14/25 13:00 06/15/25 13:06 200 MLS/HR Piperacillin Sod/ Tazobactam Sod 100 ml @ 25 mls/hr Q6H IV 06/14/25 14:00 06/15/25 14:19 25 MLS/HR Furosemide 40 mg DAILY@0900 IV 06/16/25 09:00 Diagnostic Test (Pha) 1 strip ACHS 06/15/25 11:30 06/15/25 17:00 1 STRIP Insulin Human Regular ACHS SC 06/15/25 11:30 06/15/25 11:31 3 UNITS Dextrose 50 ml UD PRN IV 06/15/25 09:30 Morphine Sulfate 2 mg Q4HPRN PRN IV 06/15/25 14:00 06/15/25 14:20 2 MG Morphine Sulfate 2 mg Q30M PRN IV 06/15/25 14:00 laboratory and microbiology Laboratory Tests 06/15/25 03:45 Test 06/15/25 03:45 Range/Units Serum Glucose 124 H 74-106 mg/dL Assessment/Plan Impression Acute hypoxemic respiratory failure Cellulitis Sepsis COPD Patient seen and examined Events Low oxygen requirements On 2 liters nasal cannula No acute events Labs and imaging reviewed Management Supplemental oxygen Titrate to maintain sats 90% or above Incentive spirometry Antibiotics- Zosyn Bronchodilators Okay to withhold steroids in absence of wheezing Monitor renal function Monitor electrolytes Supplement as needed Home oxygen evaluation prior to discharge DVT prophylaxis Dietary Evaluation Review Recommendations by RD: Dietary education by RD Comments: 1) Initiate MVI @ 1 tb qd 2) Initiate vitamin C @ 500 mg bid and zinc sulfate @ 220 mg qd for 7 days 3) Add cardiac restriction to 60g CCHO diet 4) Refer to outpatient RD/CD[facility] for weight management 5) Follow-up with cardiology and pulmonology 6) Follow-up with social work instructor r/t polysubstance abuse 7) Continue to monitor I&O, labs, and skin integrity Expected Outcomes/Goals: 1) appetite and labs to improve 2) wounds to improve 3) gradual wt loss 4) f/u in 3-5 days Plan discussed with: Patient JUAN FRANCISCO VILLAR MD Jun 15, 2025 18:14
--- NOTE | 2025-06-15 23:53 | DVHPN2 ---
Progress Note - Dictate Date Seen: Jun 15, 2025 Medical Necessity Reason Pt with a Central, PICC or Fol: No Subjective Patient was seen and evaluated in follow up. Patient denies any complaints. Patient is resting in bed. WBC 11.4. Cultures are pending. Echo is ordered. Telemetry reviewed. vital signs Vital Sign Date Time Temp Pulse Resp B/P (MAP) Pulse Ox O2 Delivery O2 Flow Rate FiO2 06/15/25 21:42 83 131/81 06/15/25 20:31 98.5 18 97 98.5 06/15/25 20:00 Room Air* 0 21 Total Intake and Output 06/14/25 06/14/25 06/15/25 15:00 23:00 07:00 Intake Total 975 ml 500 ml Output Total 1800 ml 1900 ml Balance -825 ml -1400 ml medications Current Medications Medications Dose Ordered Sig/Teresa Route Start Time Stop Time Status Last Admin Dose Admin Atorvastatin Calcium 20 mg HS PO 06/13/25 22:00 06/15/25 21:41 20 MG Aspirin 81 mg DAILY PO 06/14/25 10:00 06/15/25 08:29 81 MG Sodium Chloride 10 ml Q8HR IV 06/13/25 22:00 06/15/25 21:42 10 ML Acetaminophen/ Hydrocodone Bitart 1 tab Q4HP PRN PO 06/13/25 16:30 06/15/25 20:08 1 TAB Ondansetron HCl 4 mg Q4HP PRN IV 06/13/25 16:30 06/13/25 18:08 4 MG Docusate Sodium 100 mg BIDPRN PRN PO 06/13/25 16:30 Acetaminophen 650 mg Q6HP PRN PO 06/13/25 16:30 Vancomycin HCl 0 ml @ 0 mls/hr UD IV 06/13/25 17:45 Nitroglycerin 0.4 mg Q5MINP PRN SL 06/13/25 17:45 Carvedilol 6.25 mg Q12HR PO 06/14/25 22:00 06/15/25 21:42 6.25 MG Nicotine 1 patch DAILY TD 06/15/25 10:00 06/15/25 08:32 1 PATCH Enoxaparin Sodium 40 mg DAILY SC 06/15/25 10:00 06/15/25 08:31 40 MG Lisinopril 5 mg DAILY PO 06/15/25 10:00 06/15/25 08:30 5 MG Vancomycin HCl 250 ml @ 200 mls/hr Q8H IV 06/14/25 13:00 06/15/25 21:41 200 MLS/HR Piperacillin Sod/ Tazobactam Sod 100 ml @ 25 mls/hr Q6H IV 06/14/25 14:00 06/15/25 20:08 25 MLS/HR Furosemide 40 mg DAILY@0900 IV 06/16/25 09:00 Diagnostic Test (Pha) 1 strip ACHS 06/15/25 11:30 06/15/25 21:48 1 STRIP Insulin Human Regular ACHS SC 06/15/25 11:30 06/15/25 11:31 3 UNITS Dextrose 50 ml UD PRN IV 06/15/25 09:30 Morphine Sulfate 2 mg Q4HPRN PRN IV 06/15/25 14:00 06/15/25 14:20 2 MG Morphine Sulfate 2 mg Q30M PRN IV 06/15/25 14:00 objective GENERAL: Alert and oriented x 3. Unkept. Obese. EYES: PERRL, EOMI. Anicteric. HENT: Moist mucous membranes. LUNGS: Decreased breath sounds. CARDIOVASCULAR: Regular rate and rhythm. ABDOMEN: Soft, nontender and nondistended. EXTREMITIES: Left ankle edema, erythema, hot to touch. Right ankle hyperpigmentation with scaly lesions. NEUROLOGIC: No focal neurological deficits. SKIN: Warm, dry. laboratory and microbiology Laboratory Tests 06/15/25 03:45 Test 06/15/25 03:45 Range/Units Serum Glucose 124 H 74-106 mg/dL Problem List Sepsis with extensive left lower extremity cellulitis/UTI. Likely COPD exacerbation. Acute hypoxic respiratory failure. Rule out structural heart disease. Insulin-dependent diabetes mellitus. ?Thyroid tumor. Methamphetamine/nicotine dependence. Medical noncompliance. Obesity. Assessment/Plan Continued all current supportive medical care. Transthoracic echocardiogram to rule out structural heart disease. Morphine and [place] for pain management. Aspirin, Lipitor, Metoprolol. Coreg, Lisinopril. DVT prophylactics. Diuretics with Lasix. IV antibiotics as ordered. Additional plan as per the hospital course. Dietary Evaluation Review Recommendations by RD: Dietary education by RD Comments: 1) Initiate MVI @ 1 tb qd 2) Initiate vitamin C @ 500 mg bid and zinc sulfate @ 220 mg qd for 7 days 3) Add cardiac restriction to 60g CCHO diet 4) Refer to outpatient RD/[facility] for weight management 5) Follow-up with cardiology and pulmonology 6) Follow-up with social media sr strategy manager r/t polysubstance abuse 7) Continue to monitor I&O, labs, and skin integrity Expected Outcomes/Goals: 1) appetite and labs to improve 2) wounds to improve 3) gradual wt loss 4) f/u in 3-5 days Plan discussed with: Patient SKYLA MAXWELL MD Jun 15, 2025 23:53
[2025-06-16] VITALS (8 sets, daily range): BP systolic 112–133; BP diastolic 63–83; PULSE 62–82; RESP 16–19; TEMP 98–98.5; O2SAT 95–98
[2025-06-16 06:48] LABS: Hematocrit 38.9 % (41.0-53.0); Hemoglobin 13.1 g/dL (13.5-17.5); Mean Corpuscular Hemoglobin 30.8 pg (28.0-32.0); Mean Corpuscular Volume 91.4 fL (80.0-100.0)
[2025-06-16 06:56] LABS: Chloride 103 mmol/L (98-107); Potassium 3.9 mmol/L (3.5-5.1); Sodium 140 mmol/L (136-145)
[2025-06-16 06:57] LABS: Anion Gap 7 (5-15); Calcium 10.3 mg/dL (8.7-10.4); Carbon Dioxide 30 mmol/L (20-31)
[2025-06-16 07:02] LABS: BUN/Creatinine Ratio 13.4 (10.0-20.0); Blood Urea Nitrogen 13 mg/dL (9-23)
[2025-06-16 07:03] LABS: Glucose 126 mg/dL (74-106)
[2025-06-16 07:47] LABS: Total Cells Counted 100.0 (100)
[2025-06-16] MEDS: FUROSEMIDE 40 MG/4 ML VIAL IV SCH (08:24)
--- NOTE | 2025-06-16 11:57 | DVHPN2 ---
Subjective Patient denies any symptoms at this time Reviewed: Care Plan, H&P, Labs, Medications Changes from previous H/P or p: No Changes General: Per HPI Eyes: No Pain, No Vision change, No Conjunctivae inflammation, No Eyelid inflammation, No Other, No Redness ENT: No Ear pain, No Ear discharge, No Nose pain, No Nose discharge, No Nose congestion, No Mouth pain, No Mouth swelling, No Throat pain, No Throat swelling, No Other Cardiovascular: No Chest Pain, No Palpitations, No Orthopnea, No Paroxysmal Noc. Dyspnea, No Edema, No Lt Headedness, No Other Respiratory: Cough, Shortness of breath, Other Gastrointestinal: No Nausea, No Vomiting, No Abdominal Pain, No Diarrhea, No Constipation, No Melena, No Hematochezia, No Other Genitourinary: No Dysuria, No Frequency, No Incontinence, No Hematuria, No Retention, No Other Musculoskeletal: other Skin: No Rash, No Lesions, No Jaundice, No Bruising, No Other Objective Vitals Vital Signs Date Time Temp Pulse Resp B/P (MAP) Pulse Ox O2 Delivery O2 Flow Rate FiO2 06/16/25 09:22 75 115/78 06/16/25 08:28 98.0 19 97 98.0 06/16/25 08:00 Room Air* 0 21 Intake/Output Intake and Output 06/16/25 07:00 Intake Total 2025 ml Output Total 2400 ml Balance -375 ml Intake Oral 1425 ml IV Total 600 ml Output Urine Total 2400 ml General Appearance: Alert, Oriented X3, Cooperative, No acute distress HEENT: Atraumatic, PERRLA Cardiovascular: Normal S1, Normal S2 Abdomen: Normal bowel sounds, Soft, No tenderness Extremities: Normal pulses, Other (Plus three bilateral lower extremity swelling. Were swelling to left lower extremity with cellulitis) Skin: Dry, Intact Psych/Mental Status: Mental status NL, Mood NL Medications Current Medications Medications Dose Ordered Sig/Teresa Route Start Time Stop Time Status Last Admin Dose Admin Atorvastatin Calcium 20 mg HS PO 06/13/25 22:00 06/15/25 21:41 20 MG Aspirin 81 mg DAILY PO 06/14/25 10:00 06/16/25 08:21 81 MG Sodium Chloride 10 ml Q8HR IV 06/13/25 22:00 06/16/25 05:22 10 ML Acetaminophen/ Hydrocodone Bitart 1 tab Q4HP PRN PO 06/13/25 16:30 06/15/25 20:08 1 TAB Ondansetron HCl 4 mg Q4HP PRN IV 06/13/25 16:30 06/13/25 18:08 4 MG Docusate Sodium 100 mg BIDPRN PRN PO 06/13/25 16:30 Acetaminophen 650 mg Q6HP PRN PO 06/13/25 16:30 Vancomycin HCl 0 ml @ 0 mls/hr UD IV 06/13/25 17:45 Nitroglycerin 0.4 mg Q5MINP PRN SL 06/13/25 17:45 Carvedilol 6.25 mg Q12HR PO 06/14/25 22:00 06/16/25 08:22 6.25 MG Nicotine 1 patch DAILY TD 06/15/25 10:00 06/16/25 08:22 1 PATCH Enoxaparin Sodium 40 mg DAILY SC 06/15/25 10:00 06/16/25 08:23 40 MG Lisinopril 5 mg DAILY PO 06/15/25 10:00 06/16/25 08:23 5 MG Vancomycin HCl 250 ml @ 200 mls/hr Q8H IV 06/14/25 13:00 06/16/25 05:22 200 MLS/HR Piperacillin Sod/ Tazobactam Sod 100 ml @ 25 mls/hr Q6H IV 06/14/25 14:00 06/16/25 08:21 25 MLS/HR Furosemide 40 mg DAILY@0900 IV 06/16/25 09:00 06/16/25 08:24 40 MG Diagnostic Test (Pha) 1 strip ACHS 06/15/25 11:30 06/16/25 11:30 1 STRIP Insulin Human Regular ACHS SC 06/15/25 11:30 06/15/25 11:31 3 UNITS Dextrose 50 ml UD PRN IV 06/15/25 09:30 Morphine Sulfate 2 mg Q4HPRN PRN IV 06/15/25 14:00 06/16/25 04:28 2 MG Morphine Sulfate 2 mg Q30M PRN IV 06/15/25 14:00 Temazepam 15 mg HSPRN PRN PO 06/16/25 12:00 UNV Laboratory Results Laboratory Tests 06/16/25 05:36 Chemistry Test 06/16/25 05:36 Calcium Level 10.3 mg/dL (8.7-10.4) Urinalysis Test 06/13/25 15:03 Urine Color Yellow (Yellow) Urine Clarity Turbid (Clear) H Urine pH 7.0 (5.0-9.0) Urine Specific [place] 1.014 (1.001-1.035) Urine Protein 1+ (Negative) H Urine Ketones Negative (Negative) Urine Blood 2+ /uL (Negative) H Urine Nitrite 2+ (Negative) H Urine Bilirubin Negative (Negative) Urine Urobilinogen Normal mg/dL (Negative) Urine Leukocyte Esterase 1+ /uL (Negative) Urine RBC 5 /hpf (0 - 3) Urine Microscopic WBC 12 /HPF (0-3) H Urine Squamous Epithelial Cells Few /hpf (<5) Urine Bacteria Few /hpf (None Seen) H Urine Mucus Few (None Seen) Urine Glucose Trace mg/dL (Normal) Microbiology Microbiology Date/Time Source Procedure Growth Status 06/13/25 15:30 Blood Blood Culture - Preliminary NO GROWTH AFTER 48 HOURS OF INCUBATION. Resulted 06/13/25 15:03 Voided Urine Urine Culture - Preliminary Resulted Labs and/or images reviewed: Labs reviewed by me, Image(s) reviewed by me Assessment/Plan Assessment/Plan Impression: -sepsis -left lower extremity cellulitis -bilateral lower extremity venous stasis ulcers -diabetes mellitus -acute on chronic decompensated diastolic heart failure -obesity -polysubstance abuse with tobacco and nicotine -primary hypertension Plan: Events: No events overnight. Improvement with bilateral lower extremity swelling and redness to left lower extremity. -continue antibiotic therapy with vancomycin and Zosyn -continue IV diuresis with Lasix -continue beta-lorene and CLIFF inhibitor -regular insulin sliding scale -wound care consultation -horner cultures -repeat labs in a.m. Total time spent with patient discussing and formulating plan of care: 35 minutes. This medical document was created using an electronic medical record system with [employer] dictation system. Although this document has been carefully reviewed, there may still be some phonetic and typographical errors. These areas are purely typographical due to imperfections of the software programs, and do not reflect any compromise in the patient's medical care. Plan discussed with: Patient, Other (RN) My Orders Orders - PEYTON GASPAR NP Procedure Category Date Status Time Temazepam (Restoril) PHA 06/16/25 Transmitted 12:00 Date of Service: Jun 16, 2025 Billing Provider: PEYTON GASPAR NP Common Visit Codes: [id number] INP/OBS CARE(HIGH) PEYTON GASPAR NP Jun 16, 2025 11:57
[2025-06-16] MEDS ORDERED: TEMAZEPAM 15 MG CAP PO PRN (12:00)
--- NOTE | 2025-06-16 15:41 | DVHPN2 ---
Progress Note - Dictate Date Seen: Jun 16, 2025 Medical Necessity Reason Pt with a Central, PICC or Fol: No vital signs Vital Sign Date Time Temp Pulse Resp B/P (MAP) Pulse Ox O2 Delivery O2 Flow Rate FiO2 06/16/25 09:22 75 115/78 06/16/25 08:28 98.0 19 97 98.0 06/16/25 08:00 Room Air* 0 21 Total Intake and Output 06/15/25 06/15/25 06/16/25 15:00 23:00 07:00 Intake Total 975 ml 1050 ml Output Total 1300 ml 1100 ml Balance -325 ml -50 ml medications Current Medications Medications Dose Ordered Sig/Teresa Route Start Time Stop Time Status Last Admin Dose Admin Atorvastatin Calcium 20 mg HS PO 06/13/25 22:00 06/15/25 21:41 20 MG Aspirin 81 mg DAILY PO 06/14/25 10:00 06/16/25 08:21 81 MG Sodium Chloride 10 ml Q8HR IV 06/13/25 22:00 06/16/25 14:32 10 ML Acetaminophen/ Hydrocodone Bitart 1 tab Q4HP PRN PO 06/13/25 16:30 06/15/25 20:08 1 TAB Ondansetron HCl 4 mg Q4HP PRN IV 06/13/25 16:30 06/13/25 18:08 4 MG Docusate Sodium 100 mg BIDPRN PRN PO 06/13/25 16:30 Acetaminophen 650 mg Q6HP PRN PO 06/13/25 16:30 Vancomycin HCl 0 ml @ 0 mls/hr UD IV 06/13/25 17:45 Nitroglycerin 0.4 mg Q5MINP PRN SL 06/13/25 17:45 Carvedilol 6.25 mg Q12HR PO 06/14/25 22:00 06/16/25 08:22 6.25 MG Nicotine 1 patch DAILY TD 06/15/25 10:00 06/16/25 08:22 1 PATCH Enoxaparin Sodium 40 mg DAILY SC 06/15/25 10:00 06/16/25 08:23 40 MG Lisinopril 5 mg DAILY PO 06/15/25 10:00 06/16/25 08:23 5 MG Vancomycin HCl 250 ml @ 200 mls/hr Q8H IV 06/14/25 13:00 06/16/25 13:13 200 MLS/HR Piperacillin Sod/ Tazobactam Sod 100 ml @ 25 mls/hr Q6H IV 06/14/25 14:00 06/16/25 14:32 25 MLS/HR Furosemide 40 mg DAILY@0900 IV 06/16/25 09:00 06/16/25 08:24 40 MG Diagnostic Test (Pha) 1 strip ACHS 06/15/25 11:30 06/16/25 11:30 1 STRIP Insulin Human Regular ACHS SC 06/15/25 11:30 06/15/25 11:31 3 UNITS Dextrose 50 ml UD PRN IV 06/15/25 09:30 Morphine Sulfate 2 mg Q4HPRN PRN IV 06/15/25 14:00 06/16/25 04:28 2 MG Morphine Sulfate 2 mg Q30M PRN IV 06/15/25 14:00 Temazepam 15 mg HSPRN PRN PO 06/16/25 12:00 laboratory and microbiology Laboratory Tests 06/16/25 05:36 Test 06/16/25 05:36 Range/Units Serum Glucose 126 H 74-106 mg/dL Assessment/Plan Impression Acute hypoxemic respiratory failure Cellulitis Sepsis COPD Patient seen and examined Events Low oxygen requirements On 2 liters nasal cannula No distress Labs and imaging reviewed Management Supplemental oxygen Titrate to maintain sats 90% or above Incentive spirometry Antibiotics- Zosyn Bronchodilators Okay to withhold steroids in absence of wheezing Monitor renal function Monitor electrolytes Supplement as needed Home oxygen evaluation prior to discharge DVT prophylaxis Dietary Evaluation Review Recommendations by RD: Dietary education by RD Comments: 1) Initiate MVI @ 1 tb qd 2) Initiate vitamin C @ 500 mg bid and zinc sulfate @ 220 mg qd for 7 days 3) Add cardiac restriction to 60g CCHO diet 4) Refer to outpatient RD/CDCES for weight management 5) Follow-up with cardiology and pulmonology 6) Follow-up with social media marketing manager r/t polysubstance abuse 7) Continue to monitor I&O, labs, and skin integrity Expected Outcomes/Goals: 1) appetite and labs to improve 2) wounds to improve 3) gradual wt loss 4) f/u in 3-5 days Plan discussed with: Patient JUAN FRANCISCO VILLAR MD Jun 16, 2025 15:41
--- NOTE | 2025-06-16 23:58 | DVHPN2 ---
Progress Note - Dictate Date Seen: Jun 16, 2025 Medical Necessity Reason Pt with a Central, PICC or Fol: No Subjective Patient was seen and evaluated in follow up. No overnight events. The patient is resting in bed. WBC 11.9. BS are WNL. Prelim blood cultures are negative. Echocardiogram shows LV EF of 70%. Telemetry reviewed. vital signs Vital Sign Date Time Temp Pulse Resp B/P (MAP) Pulse Ox O2 Delivery O2 Flow Rate FiO2 06/16/25 22:59 70 116/61 06/16/25 20:50 98.5 18 97 98.5 06/16/25 20:00 Room Air* 0 21 Total Intake and Output 06/15/25 06/15/25 06/16/25 15:00 23:00 07:00 Intake Total 975 ml 1050 ml Output Total 1300 ml 1100 ml Balance -325 ml -50 ml medications Current Medications Medications Dose Ordered Sig/Teresa Route Start Time Stop Time Status Last Admin Dose Admin Atorvastatin Calcium 20 mg HS PO 06/13/25 22:00 06/16/25 21:59 20 MG Aspirin 81 mg DAILY PO 06/14/25 10:00 06/16/25 08:21 81 MG Sodium Chloride 10 ml Q8HR IV 06/13/25 22:00 06/16/25 21:58 10 ML Acetaminophen/ Hydrocodone Bitart 1 tab Q4HP PRN PO 06/13/25 16:30 06/16/25 21:59 1 TAB Ondansetron HCl 4 mg Q4HP PRN IV 06/13/25 16:30 06/13/25 18:08 4 MG Docusate Sodium 100 mg BIDPRN PRN PO 06/13/25 16:30 Acetaminophen 650 mg Q6HP PRN PO 06/13/25 16:30 Vancomycin HCl 0 ml @ 0 mls/hr UD IV 06/13/25 17:45 Nitroglycerin 0.4 mg Q5MINP PRN SL 06/13/25 17:45 Carvedilol 6.25 mg Q12HR PO 06/14/25 22:00 06/16/25 21:59 6.25 MG Nicotine 1 patch DAILY TD 06/15/25 10:00 06/16/25 08:22 1 PATCH Enoxaparin Sodium 40 mg DAILY SC 06/15/25 10:00 10/7/25 08:23 40 MG Lisinopril 5 mg DAILY PO 06/15/25 10:00 06/16/25 08:23 5 MG Vancomycin HCl 250 ml @ 200 mls/hr Q8H IV 06/14/25 13:00 06/16/25 21:58 200 MLS/HR Piperacillin Sod/ Tazobactam Sod 100 ml @ 25 mls/hr Q6H IV 06/14/25 14:00 06/16/25 20:10 25 MLS/HR Furosemide 40 mg DAILY@0900 IV 06/16/25 09:00 06/16/25 08:24 40 MG Diagnostic Test (Pha) 1 strip ACHS 06/15/25 11:30 06/16/25 21:59 1 STRIP Insulin Human Regular ACHS SC 06/15/25 11:30 06/15/25 11:31 3 UNITS Dextrose 50 ml UD PRN IV 06/15/25 09:30 Morphine Sulfate 2 mg Q4HPRN PRN IV 06/15/25 14:00 06/16/25 17:09 2 MG Morphine Sulfate 2 mg Q30M PRN IV 06/15/25 14:00 Temazepam 15 mg HSPRN PRN PO 06/16/25 12:00 objective GENERAL: Alert and oriented x 3. Unkept. Obese. EYES: PERRL, EOMI. Anicteric. HENT: Moist mucous membranes. LUNGS: Decreased breath sounds. CARDIOVASCULAR: Regular rate and rhythm. ABDOMEN: Soft, nontender and nondistended. EXTREMITIES: Left ankle edema, erythema, hot to touch. Right ankle hyperpigmentation with scaly lesions. NEUROLOGIC: No focal neurological deficits. SKIN: Warm, dry. laboratory and microbiology Laboratory Tests 06/16/25 05:36 Test 06/16/25 05:36 Range/Units Serum Glucose 126 H 74-106 mg/dL Problem List Sepsis with extensive left lower extremity cellulitis/UTI. Likely COPD exacerbation. Acute hypoxic respiratory failure. Rule out structural heart disease. Insulin-dependent diabetes mellitus. ?Thyroid tumor. Methamphetamine/nicotine dependence. Medical noncompliance. Obesity. Assessment/Plan Continued all current supportive medical care. Morphine and [place] for pain management. Aspirin, Lipitor, Metoprolol. Coreg, Lisinopril. DVT prophylactics. Diuretics with Lasix. IV antibiotics as ordered. Additional plan as per the hospital course. Dietary Evaluation Review Recommendations by EDER: Dietary education by RD Comments: 1) Initiate MVI @ 1 tb qd 2) Initiate vitamin C @ 500 mg bid and zinc sulfate @ 220 mg qd for 7 days 3) Add cardiac restriction to 60g CCHO diet 4) Refer to outpatient RD/CD[facility] for weight management 5) Follow-up with cardiology and pulmonology 6) Follow-up with social sciences chair r/t polysubstance abuse 7) Continue to monitor I&O, labs, and skin integrity Expected Outcomes/Goals: 1) appetite and labs to improve 2) wounds to improve 3) gradual wt loss 4) f/u in 3-5 days Plan discussed with: Patient SKYLA MAXWELL MD Jun 16, 2025 23:58
[2025-06-17] VITALS (8 sets, daily range): BP systolic 108–144; BP diastolic 66–90; PULSE 80–94; RESP 16–20; TEMP 97.7–98.5; O2SAT 91–97
[2025-06-17 04:40] LABS: Hematocrit 39.7 % (41.0-53.0); Hemoglobin 13.5 g/dL (13.5-17.5); Mean Corpuscular Hemoglobin 31.0 pg (28.0-32.0); Mean Corpuscular Volume 91.2 fL (80.0-100.0)
[2025-06-17 04:48] LABS: Chloride 105 mmol/L (98-107); Potassium 4.0 mmol/L (3.5-5.1); Sodium 139 mmol/L (136-145)
[2025-06-17 04:49] LABS: Anion Gap 7 (5-15); Carbon Dioxide 27 mmol/L (20-31)
[2025-06-17 04:55] LABS: BUN/Creatinine Ratio 12.6 (10.0-20.0); Blood Urea Nitrogen 12 mg/dL (9-23); Calcium 10.7 mg/dL (8.7-10.4); Glucose 110 mg/dL (74-106)
[2025-06-17 05:26] LABS: Total Cells Counted 100.0 (100)
[2025-06-17] MEDS ORDERED: BACDST PO (10:06)
--- NOTE | 2025-06-17 10:08 | DVHPN2 ---
Subjective Patient denies any symptoms at this time Reviewed: Care Plan, H&P, Labs, Medications Changes from previous H/P or p: No Changes General: Per HPI Eyes: No Pain, No Vision change, No Conjunctivae inflammation, No Eyelid inflammation, No Other, No Redness ENT: No Ear pain, No Ear discharge, No Nose pain, No Nose discharge, No Nose congestion, No Mouth pain, No Mouth swelling, No Throat pain, No Throat swelling, No Other Cardiovascular: No Chest Pain, No Palpitations, No Orthopnea, No Paroxysmal Noc. Dyspnea, No Edema, No Lt Headedness, No Other Respiratory: Cough, Shortness of breath, Other Gastrointestinal: No Nausea, No Vomiting, No Abdominal Pain, No Diarrhea, No Constipation, No Melena, No Hematochezia, No Other Genitourinary: No Dysuria, No Frequency, No Incontinence, No Hematuria, No Retention, No Other Musculoskeletal: other Skin: No Rash, No Lesions, No Jaundice, No Bruising, No Other Objective Vitals Vital Signs Date Time Temp Pulse Resp B/P (MAP) Pulse Ox O2 Delivery O2 Flow Rate FiO2 06/17/25 09:08 133/76 06/17/25 09:00 98.0 90 16 94 98.0 06/16/25 20:00 Room Air* 0 21 Intake/Output Intake and Output 06/17/25 07:00 Intake Total 2180 ml Output Total 4000 ml Balance -1820 ml Intake Oral 1580 ml IV Total 600 ml Output Urine Total 4000 ml General Appearance: Alert, Oriented X3, Cooperative, No acute distress HEENT: Atraumatic, PERRLA Cardiovascular: Normal S1, Normal S2 Abdomen: Normal bowel sounds, Soft, No tenderness Extremities: Normal pulses, Other (Plus three bilateral lower extremity swelling. Were swelling to left lower extremity with cellulitis) Skin: Dry, Intact Psych/Mental Status: Mental status NL, Mood NL Medications Current Medications Medications Dose Ordered Sig/Teresa Route Start Time Stop Time Status Last Admin Dose Admin Atorvastatin Calcium 20 mg HS PO 06/13/25 22:00 06/16/25 21:59 20 MG Aspirin 81 mg DAILY PO 06/14/25 10:00 06/16/25 08:21 81 MG Sodium Chloride 10 ml Q8HR IV 06/13/25 22:00 06/17/25 05:12 10 ML Acetaminophen/ Hydrocodone Bitart 1 tab Q4HP PRN PO 10/4/25 16:30 06/16/25 21:59 1 TAB Ondansetron HCl 4 mg Q4HP PRN IV 06/13/25 16:30 06/13/25 18:08 4 MG Docusate Sodium 100 mg BIDPRN PRN PO 06/13/25 16:30 Acetaminophen 650 mg Q6HP PRN PO 06/13/25 16:30 Vancomycin HCl 0 ml @ 0 mls/hr UD IV 06/13/25 17:45 Nitroglycerin 0.4 mg Q5MINP PRN SL 06/13/25 17:45 Carvedilol 6.25 mg Q12HR PO 06/14/25 22:00 06/16/25 21:59 6.25 MG Nicotine 1 patch DAILY TD 06/15/25 10:00 06/16/25 08:22 1 PATCH Enoxaparin Sodium 40 mg DAILY SC 06/15/25 10:00 06/16/25 08:23 40 MG Lisinopril 5 mg DAILY PO 06/15/25 10:00 06/16/25 08:23 5 MG Vancomycin HCl 250 ml @ 200 mls/hr Q8H IV 06/14/25 13:00 06/17/25 05:12 200 MLS/HR Piperacillin Sod/ Tazobactam Sod 100 ml @ 25 mls/hr Q6H IV 06/14/25 14:00 06/17/25 09:02 25 MLS/HR Furosemide 40 mg DAILY@0900 IV 06/16/25 09:00 06/17/25 09:08 40 MG Diagnostic Test (Pha) 1 strip ACHS 06/15/25 11:30 06/17/25 06:07 1 STRIP Insulin Human Regular ACHS SC 06/15/25 11:30 06/15/25 11:31 3 UNITS Dextrose 50 ml UD PRN IV 06/15/25 09:30 Morphine Sulfate 2 mg Q4HPRN PRN IV 06/15/25 14:00 06/16/25 17:09 2 MG Morphine Sulfate 2 mg Q30M PRN IV 06/15/25 14:00 Temazepam 15 mg HSPRN PRN PO 06/16/25 12:00 Laboratory Results Laboratory Tests 06/17/25 04:11 Chemistry Test 06/17/25 04:11 Calcium Level 10.7 mg/dL (8.7-10.4) H Urinalysis Test 06/13/25 15:03 Urine Color Yellow (Yellow) Urine Clarity Turbid (Clear) H Urine pH 7.0 (5.0-9.0) Urine Specific [place] 1.014 (1.001-1.035) Urine Protein 1+ (Negative) H Urine Ketones Negative (Negative) Urine Blood 2+ /uL (Negative) H Urine Nitrite 2+ (Negative) H Urine Bilirubin Negative (Negative) Urine Urobilinogen Normal mg/dL (Negative) Urine Leukocyte Esterase 1+ /uL (Negative) Urine RBC 5 /hpf (0 - 3) Urine Microscopic WBC 12 /HPF (0-3) H Urine Squamous Epithelial Cells Few /hpf (<5) Urine Bacteria Few /hpf (None Seen) H Urine Mucus Few (None Seen) Urine Glucose Trace mg/dL (Normal) Microbiology Microbiology Date/Time Source Procedure Growth Status 06/13/25 15:30 Blood Blood Culture - Preliminary NO GROWTH AFTER 72 HOURS OF INCUBATION. Resulted 06/13/25 15:03 Voided Urine Urine Culture - Final Proteus mirabilis Complete Labs and/or images reviewed: Labs reviewed by me, Image(s) reviewed by me Assessment/Plan Assessment/Plan Impression: -sepsis -left lower extremity cellulitis -bilateral lower extremity venous stasis ulcers -diabetes mellitus -acute on chronic decompensated diastolic heart failure -obesity -polysubstance abuse with tobacco and nicotine -primary hypertension Plan: Events: No events overnight. Patient has marked improvement with swelling and redness to left lower extremity. Minor bump in white blood cell count. -social service consultation to assist with insurance of this area -continue antibiotic therapy with vancomycin and Zosyn -continue IV diuresis with Lasix -continue beta-lorene and CLIFF inhibitor -regular insulin sliding scale -wound care consultation -horner cultures -repeat labs in a.m. -DC planning for a.m. Total time spent with patient discussing and formulating plan of care: 35 minutes. This medical document was created using an electronic medical record system with [employer] system. Although this document has been carefully reviewed, there may still be some phonetic and typographical errors. These areas are purely typographical due to imperfections of the software programs, and do not reflect any compromise in the patient's medical care. Plan discussed with: Patient, Other (RN) My Orders Orders - PEYTON GASPAR NP Procedure Category Date Status Time Temazepam (Restoril) PHA 06/16/25 In Process 12:00 Cleanse Wound With MILO 06/16/25 In Process Wound Clean 12:25 * Dietary Consult CONS 06/16/25 Transmitted 17:26 * [employer]phalt [employer] CONS 06/17/25 Transmitted Consult Complete Blood Count LAB 06/18/25 Verified 04:00 Date of Service: Jun 17, 2025 Billing Provider: PEYTON GASPAR NP Common Visit Codes: [id number] INP/OBS CARE(HIGH) PEYTON GASPAR NP Jun 17, 2025 10:08
[2025-06-17] MEDS: VANCOMYCIN 750MG KIT 100 ML IV SCH (13:49)
--- NOTE | 2025-06-17 23:26 | DVHPN2 ---
Progress Note - Dictate Date Seen: Jun 17, 2025 Medical Necessity Reason Pt with a Central, PICC or Fol: No Subjective Patient was seen and evaluated in follow up. Patient denies any new complaints of pain/distress. WBC 13.7, CA 10.7. Telemetry reviewed. vital signs Vital Sign Date Time Temp Pulse Resp B/P (MAP) Pulse Ox O2 Delivery O2 Flow Rate FiO2 06/17/25 12:38 97.7 80 20 137/89 (105) 93 97.7 06/16/25 20:00 Room Air* 0 21 Total Intake and Output 06/16/25 06/16/25 06/17/25 15:00 23:00 07:00 Intake Total 1030 ml 1150 ml Output Total 3000 ml 1000 ml Balance -1970 ml 150 ml medications Current Medications Medications Dose Ordered Sig/Teresa Route Start Time Stop Time Status Last Admin Dose Admin Atorvastatin Calcium 20 mg HS PO 06/13/25 22:00 06/16/25 21:59 20 MG Aspirin 81 mg DAILY PO 06/14/25 10:00 06/17/25 10:47 81 MG Sodium Chloride 10 ml Q8HR IV 06/13/25 22:00 06/17/25 13:49 10 ML Acetaminophen/ Hydrocodone Bitart 1 tab Q4HP PRN PO 06/13/25 16:30 06/16/25 21:59 1 TAB Ondansetron HCl 4 mg Q4HP PRN IV 06/13/25 16:30 06/13/25 18:08 4 MG Docusate Sodium 100 mg BIDPRN PRN PO 06/13/25 16:30 Acetaminophen 650 mg Q6HP PRN PO 06/13/25 16:30 Vancomycin HCl 0 ml @ 0 mls/hr UD IV 06/13/25 17:45 Nitroglycerin 0.4 mg Q5MINP PRN SL 06/13/25 17:45 Carvedilol 6.25 mg Q12HR PO 06/14/25 22:00 06/17/25 10:50 6.25 MG Nicotine 1 patch DAILY TD 06/15/25 10:00 06/17/25 10:50 1 PATCH Enoxaparin Sodium 40 mg DAILY SC 06/15/25 10:00 06/17/25 10:48 40 MG Lisinopril 5 mg DAILY PO 06/15/25 10:06/17/25 10:45 5 MG Piperacillin Sod/ Tazobactam Sod 100 ml @ 25 mls/hr Q6H IV 06/14/25 14:00 06/17/25 13:49 25 MLS/HR Furosemide 40 mg DAILY@0900 IV 06/16/25 09:00 06/17/25 09:08 40 MG Diagnostic Test (Pha) 1 strip ACHS 06/15/25 11:30 06/17/25 11:30 1 STRIP Insulin Human Regular ACHS SC 06/15/25 11:30 06/15/25 11:31 3 UNITS Dextrose 50 ml UD PRN IV 06/15/25 09:30 Morphine Sulfate 2 mg Q4HPRN PRN IV 06/15/25 14:00 06/16/25 17:09 2 MG Morphine Sulfate 2 mg Q30M PRN IV 06/15/25 14:00 Temazepam 15 mg HSPRN PRN PO 06/16/25 12:00 Vancomycin HCl 100 ml @ 100 mls/hr Q8H IV 06/17/25 13:00 06/17/25 13:49 100 MLS/HR objective GENERAL: Alert and oriented x 3. Unkept. Obese. EYES: PERRL, EOMI. Anicteric. HENT: Moist mucous membranes. LUNGS: Decreased breath sounds. CARDIOVASCULAR: Regular rate and rhythm. ABDOMEN: Soft, nontender and nondistended. EXTREMITIES: Left ankle edema, erythema, hot to touch. Right ankle hyperpigmentation with scaly lesions. NEUROLOGIC: No focal neurological deficits. SKIN: Warm, dry. laboratory and microbiology Laboratory Tests 06/17/25 04:11 Test 06/17/25 04:11 Range/Units Serum Glucose 110 H 74-106 mg/dL Problem List Sepsis with extensive left lower extremity cellulitis/UTI. Likely COPD exacerbation. Acute hypoxic respiratory failure. Rule out structural heart disease. Insulin-dependent diabetes mellitus. ?Thyroid tumor. Methamphetamine/nicotine dependence. Medical noncompliance. Obesity. Assessment/Plan Continued all current supportive medical care. Aspirin, Metoprolol. Coreg, Lisinopril. DVT prophylactics. Diuretics with Lasix. IV antibiotics as ordered. Nitro SL. Morphine for pain management. Additional plan as per the hospital course. Dietary Evaluation Review Recommendations by RD: Dietary education by RD Comments: 1) Initiate MVI @ 1 tb qd 2) Initiate vitamin C @ 500 mg bid and zinc sulfate @ 220 mg qd for 7 days 3) Add cardiac restriction to 60g CCHO diet 4) Refer to outpatient RD/[facility] for weight management 5) Follow-up with cardiology and pulmonology 6) Follow-up with social science professor r/t polysubstance abuse 7) Continue to monitor I&O, labs, and skin integrity Expected Outcomes/Goals: 1) appetite and labs to improve 2) wounds to improve 3) gradual wt loss 4) f/u in 3-5 days Plan discussed with: Patient SKYLA MAXWELL MD Jun 17, 2025 14:30
[2025-06-18 05:00] VITALS: BP 124/69; PULSE 82; RESP 18; TEMP 97.8; O2SAT 93
[2025-06-18 06:46] LABS: Hemoglobin 14.1 g/dL (13.5-17.5); Mean Corpuscular Volume 90.8 fL (80.0-100.0)
[2025-06-18 06:50] LABS: Hematocrit 41.1 % (41.0-53.0); Mean Corpuscular Hemoglobin 31.1 pg (28.0-32.0)
[2025-06-18 08:00] VITALS: PULSE 76; PULSE 82; RESP 18; O2SAT 96
[2025-06-18 09:00] VITALS: BP 129/84; PULSE 66; RESP 20; TEMP 97.3; O2SAT 96
[2025-06-18 09:11] LABS: Total Cells Counted 100.0 (100)
--- NOTE | 2025-06-18 10:45 | DVHDS2 ---
Discharge Summary Date of Admission Jun 13, 2025 at 17:42 Date of Discharge: Jun 18, 2025 Admitting Diagnosis Acute respiratory failure Labs/Diagnostic Data: Laboratory Results Test 06/18/25 05:27 06/17/25 21:31 06/17/25 04:11 06/15/25 03:45 White Blood Count 13.7 10^3/uL (4.4-10.8) Red Blood Count 4.52 10^6/uL (4.5-5.90) Hemoglobin 14.1 g/dL (13.5-17.5) Hematocrit 41.1 % (41.0-53.0) Mean Corpuscular Volume 90.8 fL (80.0-100.0) Mean Corpuscular Hemoglobin 31.1 pg (28.0-32.0) Mean Corpuscular Hemoglobin Concent 34.2 g/dL (32.0-36.0) Red Cell Distribution Width 15.7 % (11.8-14.3) Platelet Count 457 10^3/uL (140-450) Mean Platelet Volume 8.3 fL (6.9-10.8) Neutrophils (%) (Auto) % (37.0-80.0) Lymphocytes (%) (Auto) % (10.0-50.0) Monocytes (%) (Auto) % (0.0-12.0) Basophils (%) (Auto) % (0.0-2.0) Neutrophils # (Auto) 10 ^3/uL (1.6-8.6) Lymphocytes # (Auto) 10 ^3/uL (0.4-5.4) Monocytes # (Auto) 10 ^3/uL (0-1.3) Differential Total Cells Counted 100.0 (100) Neutrophils % (Manual) 67 (37.0-80.0) Band Neutrophils % (Manual) 3 Lymphocytes % (Manual) 19 (10.0-50.0) Monocytes % (Manual) 6 (0-12) Eosinophils % (Manual) 2 (0-7) Basophils % (Manual) 0 (0.0-2.0) Metamyelocytes % (manual) 1 Myelocytes % (Manual) 2 Promyelocytes % (Manual) 0 Blast Cells % (Manual) 0 Reactive Lymphocytes 0 Platelet Estimate Increased Large Platelets Few Creatinine 1.02 mg/dL (0.700-1.30) Glomerular Filtration Rate Calc 84 mL/min (>90) POC Glucose 126 mg/dl (70-106) Sodium Level 139 mmol/L (136-145) Potassium Level 4.0 mmol/L (3.5-5.1) Chloride Level 105 mmol/L (98-107) Carbon Dioxide Level 27 mmol/L (20-31) Anion Gap 7 (5-15) Blood Urea Nitrogen 12 mg/dL (9-23) BUN/Creatinine Ratio 12.6 (10.0-20.0) Serum Glucose 110 mg/dL (74-106) Calcium Level 10.7 mg/dL (8.7-10.4) Vancomycin Level Trough 15.9 ug/mL (5-10) Eosinophils (%) (Auto) 1.2 % (0.0-7.0) Eosinophils # (Auto) 0.1 10 ^3/uL (0-0.8) Basophils # (Auto) 0.1 10 ^3/uL (0-0.2) Nucleated Red Blood Cells 0.0 % D-Dimer, Quantitative 1.35 mg/L FEU (0.0-0.49) Test 06/14/25 20:40 06/14/25 06:03 06/13/25 23:35 06/13/25 18:10 Urine Opiates Screen Neg (NEGATIVE) Urine Fentanyl Screen Neg (NEGATIVE) Urine Barbiturates Screen Neg (NEGATIVE) Urine Phencyclidine Screen Neg (NEGATIVE) Urine Amphetamines Screen Pos (NEGATIVE) Urine Benzodiazepines Screen Neg (NEGATIVE) Urine Cocaine Screen Neg (NEGATIVE) Urine Cannabinoids Screen Neg (NEGATIVE) Hemoglobin A1c 5.5 % A1C (<5.7) Magnesium Level 1.9 mg/dL (1.6-2.6) Total Bilirubin 1.2 mg/dL (0.2-1.0) Aspartate Amino Transferase (AST) 25 U/L (13-40) Alanine Aminotransferase (ALT) 19 U/L (7-40) Alkaline Phosphatase 95 U/L (46-116) Total Protein 5.4 g/dL (5.7-8.2) Albumin 3.0 g/dL (3.2-4.8) Triglycerides Level 170 mg/dL (< 150) Cholesterol Level 105 mg/dL (< 200) LDL Cholesterol 60 mg/dL (< 100) HDL Cholesterol 10 mg/dL (40-59) Free Thyroxine (T4) Calculated 1.17 ng/dL (0.89-1.76) Total Triiodothyronine (TT3) 0.96 ng/mL (0.60-1.81) Random Vancomycin Level 7.8 ug/mL (5-10) Hepatitis B Surface Antigen Negative (Negative) Hepatitis C Antibody Negative (Negative) Troponin I High Sensitivity 6 ng/L (</=54) Test 06/13/25 15:30 06/13/25 15:03 06/13/25 15:00 Erythrocyte Sedimentation Rate 58 mm/hr (0-20) Lactic Acid Level 1.6 mmol/L (0.4-2.0) C-Reactive Protein High Sensitivity > 20.00 mg/dL (<1.0) B-Type Natriuretic Peptide 46.19 pg/mL (0-100) Thyroid Stimulating Hormone (TSH) 0.51 uIU/mL (0.55-4.78) Urine Color Yellow (Yellow) Urine Clarity Turbid (Clear) Urine pH 7.0 (5.0-9.0) Urine Specific [place] 1.014 (1.001-1.035) Urine Protein 1+ (Negative) Urine Ketones Negative (Negative) Urine Blood 2+ /uL (Negative) Urine Nitrite 2+ (Negative) Urine Bilirubin Negative (Negative) Urine Urobilinogen Normal mg/dL (Negative) Urine Leukocyte Esterase 1+ /uL (Negative) Urine RBC 5 /hpf (0 - 3) Urine Microscopic WBC 12 /HPF (0-3) Urine Squamous Epithelial Cells Few /hpf (<5) Urine Bacteria Few /hpf (None Seen) Urine Mucus Few (None Seen) Urine Glucose Trace mg/dL (Normal) Influenza Type A Antigen Negative (Negative) Influenza Type B Antigen Negative (Negative) SARS-CoV-2 Antigen (Rapid) Negative (NEGATIVE) Other Laboratory Tests 06/18/25 05:27 06/17/25 04:11 Brief Hx & Hospital Course: History of Present Illness The patient is a 60-year-old male with multiple past medical history including CHF, DM, hyperlipidemia, thyroid disease, and hypertension who presented to [facility] ED with complaint of shortness of breaths for the past 1 week. Patient reports he has been experiencing shortness of breaths associated with productive cough with yellowish sputum, chronic lymphedema with venous stasis, and multiple skin ulcer.The patient reports 1 week of worsen of left leg swelling, up to the knee and lower part of the left tight, that is tender to touch, rating 9/10 with erythema, warmth and ulcer in the lateral part of the bilateral leg that discharge yellowish fluid, getting worse today that prompted this visit. Patient was seen and evaluated in the ED, laboratory data shows WBC 18.4, platelets 210, sodium 136, potassium 4.1, BUN 15, creatinine 1.10, GFR 77, glucose 127, calcium 9.8, total bilirubin 1.7, BNP 46.19, CRP 20.00, troponin 8, TSH 0.51, blood pressure 138/82, heart rate 104, temperature 97.6 F, O2 saturation 96% on oxygen. Urinalysis positive for urinary tract infection. Left lower extremity CT revealing extensive cellulitis throughout the left lower extremity. Patient was started on IV antibiotic regimen vancomycin, please see medication orders section in the computer. On my assessment, patient denied chest pain, no headache, no dizziness, currently on oxygen, no abdominal pain, no diarrhea, nausea or vomiting, no fever, no chills. Patient was admitted for further evaluation and medical management. Course of hospitalization: Patient was treated with empiric antibiotic therapy with Zosyn and vancomycin. Patient was given aggressive IV diuresis, which was tapered down while in the hospital given improvement with lower extremity swelling. Patient was also found to have positive amphetamines in his UDS, for which lifestyle modification education was given to the patient regarding the need to stop using illicit drugs. Etiology for dyspnea this probably HFpEF as well as amphetamine use. Patient has been weaned off of oxygen. Redness and draining from bilateral lower extremities has improved dramatically. White blood cell count mildly elevated, with the patient continued to be afebrile. Patient is agreeable to be discharged home. His home Lasix will be decreased to 40 mg p.o. daily. Patient was also educated on the need to decrease sodium intake given his increase outside food consumption which was noted to be increasingly high in sodium. This was also discussion with the patient's sister who is going to assist with his well being. Patient will follow up with the discharge Clinic in one week. He will be continued on antibiotic therapy with Bactrim DS one tab b.i.d. for seven days. Physical examination General: Alert and Oriented x3. No acute distress. Well-nourished. Obese Eyes: EOMI. Anicteric. HENT: Moist mucous membranes. Lungs: Clear to auscultation bilaterally. No accessory muscle use. Cardiovascular: Regular rate and rhythm. No murmur. No JVD. Abdomen: Soft, non-tender and non-distended. No palpable masses. Extremities: No edema. Non-tender. Plus one edema to lower extremity Skin: No rashes or lesions. Warm. Neurologic: No focal neurological deficits. CN II-XII grossly intact, but not individually tested. Psychiatric: Cooperative. Appropriate mood and affect. Total time spent with patient discussing and formulating plan of care: 35 minutes. This medical document was created using an electronic medical record system with [employer] dictation system. Although this document has been carefully reviewed, there may still be some phonetic and typographical errors. These areas are purely typographical due to imperfections of the software programs, and do not reflect any compromise in the patient's medical care. Consults/Reason for consult Cardiology: Decompensated heart failure Condition at Discharge: Guarded Final Diagnosis/Problems List Sepsis secondary to cellulitis -sepsis -left lower extremity cellulitis -bilateral lower extremity venous stasis ulcers -diabetes mellitus -acute on chronic decompensated diastolic heart failure -obesity -polysubstance abuse with tobacco and nicotine -primary hypertension Discharge Disposition: Home Discharge Instruct/Medications Diet: Consistent carbohydrate, Cardiac 2g Na,low cholest Activity: No Restrictions, As Tolerated Follow Up/Referral: Follow up with the discharge Clinic in one week Medications: Bactrim DS one tablet twice a day for seven days Decrease previous dose of Lasix to 40 mg p.o. daily Continue all previous home medications Scheduled Sulfamethoxazole W/Trimethopri (Bactrim Ds Tablet), 1 TAB PO BID 36 Discharge Statement: "Patient was advised to return to the ER or call 911 if any headaches, dizziness, shortness of breath, chest pain, abdominal pain, bleeding, fevers, or worsening of medical condition. Patient was counseled about treatment plan, medications, possible side effects, patientverbalized understanding. All questions were answered to the best of my ability. This discharge took greater then 30 minutes in planning, reviewing documentation, counseling the patient, and discussing with other team members." ASSESSMENT ASSESSMENT Assessment Sepsis secondary to cellulitis Date of Service: Jun 18, 2025 Billing Provider: SALBINO,TODD FOOT GATHERER Common Visit Codes: 22203-PNF/OBS DISCH DAY >30min Secondary Visit Codes: 10791-QSOVT CHNG SMOKING >10MIN PEYTON GASPAR FOOT GATHERER Jun 18, 2025 10:45
[2025-06-18 12:42] VITALS: BP 119/80; PULSE 77; RESP 88; TEMP 96.6; O2SAT 96
[2025-06-18 14:05] VITALS: BP 129/84; PULSE 86; TEMP 35.9
--- NOTE | 2025-06-18 23:56 | DVHPN2 ---
Progress Note - Dictate Date Seen: Jun 18, 2025 Medical Necessity Reason Pt with a Central, PICC or Fol: No Subjective Patient was seen and evaluated in follow up. Patient has no new complaints at this time. Patient denies any cardiac symptoms. Patient is cardiac stable for discharge. Telemetry reviewed. vital signs Vital Sign Date Time Temp Pulse Resp B/P (MAP) Pulse Ox O2 Delivery O2 Flow Rate FiO2 06/18/25 14:05 35.9 86 06/18/25 12:42 88 119/80 (93) 96 06/18/25 08:00 Room Air* 0 21 Total Intake and Output 06/17/25 06/17/25 06/18/25 15:00 23:00 07:00 Intake Total 200 ml 920 ml 900 ml Output Total 2000 ml 750 ml Balance 200 ml -1080 ml 150 ml medications Current Medications Medications Dose Ordered Sig/Teresa Route Start Time Stop Time Status Last Admin Dose Admin Atorvastatin Calcium 20 mg HS PO 06/13/25 22:00 06/17/25 21:24 20 MG Aspirin 81 mg DAILY PO 06/14/25 10:06/18/25 08:56 81 MG Sodium Chloride 10 ml Q8HR IV 06/13/25 22:00 06/18/25 12:26 10 ML Acetaminophen/ Hydrocodone Bitart 1 tab Q4HP PRN PO 06/13/25 16:30 06/16/25 21:59 1 TAB Ondansetron HCl 4 mg Q4HP PRN IV 06/13/25 16:30 06/13/25 18:08 4 MG Docusate Sodium 100 mg BIDPRN PRN PO 06/13/25 16:30 Acetaminophen 650 mg Q6HP PRN PO 06/13/25 16:30 Vancomycin HCl 0 ml @ 0 mls/hr UD IV 06/13/25 17:45 Nitroglycerin 0.4 mg Q5MINP PRN SL 06/13/25 17:45 Carvedilol 6.25 mg Q12HR PO 06/14/25 22:00 06/18/25 08:56 6.25 MG Nicotine 1 patch DAILY TD 06/15/25 10:00 06/18/25 08:54 1 PATCH Enoxaparin Sodium 40 mg DAILY SC 06/15/25 10:00 06/18/25 08:55 40 MG Lisinopril 5 mg DAILY PO 06/15/25 10:00 06/18/25 08:57 5 MG Piperacillin Sod/ Tazobactam Sod 100 ml @ 25 mls/hr Q6H IV 06/14/25 14:00 06/18/25 13:25 25 MLS/HR Furosemide 40 mg DAILY@0900 IV 06/16/25 09:00 06/18/25 08:54 40 MG Diagnostic Test (Pha) 1 strip ACHS 06/15/25 11:30 06/18/25 11:20 1 STRIP Insulin Human Regular ACHS SC 06/15/25 11:30 06/18/25 11:21 2 UNITS Dextrose 50 ml UD PRN IV 06/15/25 09:30 Morphine Sulfate 2 mg Q4HPRN PRN IV 06/15/25 14:00 06/16/25 17:09 2 MG Morphine Sulfate 2 mg Q30M PRN IV 06/15/25 14:00 Temazepam 15 mg HSPRN PRN PO 06/16/25 12:00 Vancomycin HCl 100 ml @ 100 mls/hr Q8H IV 06/17/25 13:00 06/18/25 12:26 100 MLS/HR objective GENERAL: Alert and oriented x 3. Unkept. Obese. EYES: PERRL, EOMI. Anicteric. HENT: Moist mucous membranes. LUNGS: Decreased breath sounds. CARDIOVASCULAR: Regular rate and rhythm. ABDOMEN: Soft, nontender and nondistended. EXTREMITIES: Left ankle edema, erythema, hot to touch. Right ankle hyperpigmentation with scaly lesions. NEUROLOGIC: No focal neurological deficits. SKIN: Warm, dry. laboratory and microbiology Laboratory Tests 06/18/25 05:27 06/17/25 04:11 Test 06/17/25 04:11 Range/Units Serum Glucose 110 H 74-106 mg/dL Problem List Sepsis with extensive left lower extremity cellulitis/UTI. Likely COPD exacerbation. Acute hypoxic respiratory failure. Rule out structural heart disease. Insulin-dependent diabetes mellitus. ?Thyroid tumor. Methamphetamine/nicotine dependence. Medical noncompliance. Obesity. Assessment/Plan Continued all current supportive medical care. Aspirin. Coreg, Lisinopril. DVT prophylactics. Diuretics with Lasix. IV antibiotics as ordered. Nitro SL. Morphine for pain management. Additional plan as per the hospital course. Dietary Evaluation Review Recommendations by RD: Dietary education by RD Comments: 1) Initiate MVI @ 1 tb qd 2) Initiate vitamin C @ 500 mg bid and zinc sulfate @ 220 mg qd for 7 days 3) Add cardiac restriction to 60g CCHO diet 4) Refer to outpatient RD/[facility] for weight management 5) Follow-up with cardiology and pulmonology 6) Follow-up with social work administrator r/t polysubstance abuse 7) Continue to monitor I&O, labs, and skin integrity Expected Outcomes/Goals: 1) appetite and labs to improve 2) wounds to improve 3) gradual wt loss 4) f/u in 3-5 days Plan discussed with: Patient SKYLA MAXWELL MD Jun 18, 2025 15:30
--- NOTE | 2025-06-19 16:49 | DVHPN2 ---
Progress Note - Dictate Date Seen: Jun 17, 2025 Medical Necessity Reason Pt with a Central, PICC or Fol: No vital signs Vital Sign Date Time Temp Pulse Resp B/P (MAP) Pulse Ox O2 Delivery O2 Flow Rate FiO2 06/18/25 14:05 35.9 86 06/18/25 12:42 88 119/80 (93) 96 06/18/25 08:00 Room Air* 0 21 Total Intake and Output 06/18/25 06/18/25 06/19/25 15:00 23:00 07:00 Intake Total 400 ml Balance 400 ml laboratory and microbiology Laboratory Tests 06/18/25 05:27 06/17/25 04:11 Test 06/17/25 04:11 Range/Units Serum Glucose 110 H 74-106 mg/dL Assessment/Plan Impression Acute hypoxemic respiratory failure Cellulitis Sepsis COPD Patient seen and examined Events Low oxygen requirements On 2 liters nasal cannula No distress Labs and imaging reviewed Management Supplemental oxygen Titrate to maintain sats 90% or above Incentive spirometry Antibiotics- Zosyn Bronchodilators Okay to withhold steroids in absence of wheezing Monitor renal function Monitor electrolytes Supplement as needed Home oxygen evaluation prior to discharge DVT prophylaxis Dietary Evaluation Review Recommendations by RD: Dietary education by RD Comments: 1) Initiate MVI @ 1 tb qd 2) Initiate vitamin C @ 500 mg bid and zinc sulfate @ 220 mg qd for 7 days 3) Add cardiac restriction to 60g CCHO diet 4) Refer to outpatient RD/[facility] for weight management 5) Follow-up with cardiology and pulmonology 6) Follow-up with social media intern r/t polysubstance abuse 7) Continue to monitor I&O, labs, and skin integrity Expected Outcomes/Goals: 1) appetite and labs to improve 2) wounds to improve 3) gradual wt loss 4) f/u in 3-5 days Plan discussed with: Patient JUAN FRANCISCO VILLAR MD Jun 19, 2025 16:49
== END 2025-06-18 15:40 | disposition home or self-care (01) | DRG 720 ==
LOC: ER 14:13 → EDBD 14:13 → OVERFLOW 17:42 → TELE-WESTW 20:40
PROVIDERS: ADMIT Nurse Practitioner Acute Care; ATTEND Nurse Practitioner Acute Care
DX: A41.9 Sepsis, unspecified organism (principal); J96.01 Acute respiratory failure with hypoxia; I50.33 Acute on chronic diastolic (congestive) heart failure; I11.0 Hypertensive heart disease with heart failure; J44.1 Chronic obstructive pulmonary disease with (acute) exacerbation; Z20.822 Contact with and (suspected) exposure to COVID-19; L03.116 Cellulitis of left lower limb; E11.9 Type 2 diabetes mellitus without complications; E66.01 Morbid (severe) obesity due to excess calories; N39.0 Urinary tract infection, site not specified; E66.9 Obesity, unspecified; E78.5 Hyperlipidemia, unspecified; F17.210 Nicotine dependence, cigarettes, uncomplicated; I87.8 Other specified disorders of veins; F15.90 Other stimulant use, unspecified, uncomplicated; I89.0 Lymphedema, not elsewhere classified; Z91.199 Patient's noncompliance with other medical treatment and regimen due to unspecified reason; Z79.4 Long term (current) use of insulin; Z79.899 Other long term (current) drug therapy
CPT/HCPCS: 36415; 71045; 73701; 80048; 80053; 80061; 80202; 80307; 81001; 82565; 82962; 83036; 83605; 83735; 83880; 84439; 84443; 84480; 84484; 85007; 85025; 85027; 85379; 85652; 86141; 86803; 87040; 87086; 87088; 87186; 87340; 87426; 87804; 93005; 93306; 93971; 96365; 96368; 96375; 99291; G0378; J1815; J2405; J2543